=== PATIENT | female | born 1950 | race Caucasian/White ===

== ENCOUNTER 2017-01-28 06:25 | Outpatient (CLI) | payer MEDICARE ==
[~2017-01-28] VITALS: Ht 167.6 cm; Wt 52.6 kg
[~2017-01-28 06:25] MED LIST: ALBU8.5H4 IH; ALPR1TAB2 PO; HYDR-3583 PO; IPR14IN INH; MIRT30TA6 PO; MRTZ15T PO; OMEP-10 PO; ONDA4TAB8 PO; OXYC-12 PO; POTA20TA15 PO
[2017-01-28] MEDS ORDERED: DIVA-21 PO (15:17)
== END 2017-01-28 15:27 ==
LOC: PREOP 06:25
PROVIDERS: ATTEND Surgery
DX: Z01.818 Encounter for other preprocedural examination (principal); Z85.038 Personal history of other malignant neoplasm of large intestine

== ENCOUNTER 2017-02-01 09:07 | Day surgery (SDC) | payer MEDICAID, MEDICARE ==
[~2017-02-01] VITALS: Ht 167.6 cm; Wt 52.6 kg
[~2017-02-01 09:07] MED LIST changes: +DIVA-21 PO
--- NOTE | 2017-02-01 09:34 | Conscious Sedation/ASA ---
Conscious Sedation Pre-Proced ASA Class: 2 Airway Mallampati Classification: ([place] appropriate class) I. II. III, IV Lungs Heart ASA score ASA 1: a normal healthy patient ASA 2: a patient with a mild systemic disease (mid diabetes, controlled hypertension, obesity ASA 3: a patient with a severe systemic disease that limits activity (angina , COPD, prior Myocardial infarction) ASA 4: a patient with an incapacitating disease that is a constant threat to life (CHF, renal failure) ASA 5: a moribund patient not expected to survive 24 hrs. (ruptured aneurysm) ASA 6: a declared brain patient whose organs are being harvested. For emergent operations, add the letter E after the classification Grade 1 Sedation Plan: Plan communicated to team members, Discussed options with patient/fam Note The patient is an appropriate candidate to undergo the planned procedure, sedation, and anesthesia. The patient immediately re-assessed prior to indication. VERNON CARABALLO MD Feb 01, 2017 9:34 am
[2017-02-01] MEDS ORDERED: NS IV 500 ML 500 ML IV PRN (09:35)
[2017-02-01] MEDS ORDERED: NALOXONE 0.4 MG/ML 1 ML (NARCAN) VIAL IVP PRN (09:45)
[2017-02-01] MEDS ORDERED: FLUMAZENIL (ROMAZICON) 0.1 MG/ML 5 ML VIAL INJ PRN (09:45)
[2017-02-01] MEDS ORDERED: MIRT30TA6 PO (10:12)
[2017-02-01] MEDS ORDERED: BUDE10.2 IH (10:12)
[2017-02-01] MEDS ORDERED: METO-351 PO (10:12)
[2017-02-01] MEDS ORDERED: CYPR4TAB PO (10:12)
[2017-02-01] MEDS ORDERED: RT-ALBUINH IH (10:12)
[2017-02-01 10:30] VITALS: BP 123/99
[2017-02-01] MEDS ORDERED: MIDAZOLAM 2 MG/2 ML (VERSED) VIAL ONE ×5 (11:25→11:32)
[2017-02-01] MEDS ORDERED: fentaNYL INJECTION 100 MCG/2 ML AMP ONE ×3 (11:25→11:33)
[2017-02-01] MEDS: fentaNYL INJECTION 100 MCG/2 ML AMP IVP PRN ×5 (11:25→11:50)
[2017-02-01] MEDS: MIDAZOLAM 2 MG/2 ML (VERSED) VIAL IVP PRN ×5 (11:35→11:47)
--- NOTE | 2017-02-01 11:59 | Endoscopy Procedure Report ---
Endoscopy Report Date: Feb 01, 2017 Preoperative Diagnosis: personal history of colon cancer and polyps Study Performed: Colonoscopy Procedure Instrument: Colonoscope Procedure Procedure and Findings colonoscopy with hot biopsy polypectomy Findings Findings 1.: Polyp, Diverticulosis, Internal Hemorrhoids Copy Copies To 1: REBECCA HERNANDEZ XAVIER M MD Feb 01, 2017 11:59 am
--- NOTE | 2017-02-01 12:00 | Discharge Inst-Simple/Standard ---
Discharge Inst-Standard Discharge Medications New, Converted or Re-Newed RX: Other Patient Instructions/Follow Up Plan of Care/Instructions/FU: repeat colonoscopy in 2 years Activity as Tolerated: Yes Discharge Diet: No Restrictions VERNON CARABALLO MD Feb 01, 2017 12:00 pm
[2017-02-01 12:45] VITALS: BP 112/69
[2017-02-01 13:10] VITALS: BP 114/72
[2017-02-01 13:25] VITALS: BP 114/72
--- NOTE | 2017-02-02 08:49 | PROCEDURE REPORT ---
PROCEDURE PHYSICIAN: VERNON CARABALLO DATE OF PROCEDURE: 02/01/2017 PROCEDURE: 1. Colonoscopy. 2. Polypectomy (hot biopsy x2). SURGEON: Dr. Caraballo. INDICATION FOR THE PROCEDURE: This lady came in for colonoscopy for polyp surveillance. In addition, she had undergone sigmoid resection for carcinoma many years ago. Informed consent was obtained after reviewing the procedure in detail. DESCRIPTION OF PROCEDURE: She was placed in left lateral decubitus position and her vital signs were monitored. Conscious sedation was achieved using Versed and fentanyl. Digital rectal examination was unremarkable. The colonoscope was then introduced into the rectum and advanced to the cecum. It was then withdrawn slowly and the mucosa examined in a systematic fashion. FINDINGS: 1. Internal hemorrhoids. 2. Very few diverticula involving the descending colon. 3. A 2 mm polyp at the proximal descending colon that was excised with hot biopsy forceps. 4. 1 mm polyp at the proximal transverse colon that was managed in a similar fashion. She tolerated the procedure well and was taken back to the nursing area in a stable condition. IMPRESSION: 1. Previous sigmoid carcinoma. 2. Personal history of polyps. 3. Small polyps excised from the descending and the proximal transverse colon. 4. Recommend repeating in 2 years. Job ID: [id number] Dictated Date: 02/01/2017 11:58:11 Wig Comber Date: 02/02/2017 08:39:36 / soto ESTRADA
--- OUTSIDE RECORDS SUMMARY | 2017-03-07 05:50 | XMS REPORT ---
Author Author RUFINO MEEKS eClinicalWorks Address Unknown Phone Unavailable Care Team Providers Care Art Conservator Name Role Phone RUFINO MEEKS CP Unavailable Allergies, Adverse Reactions, Alerts Substance Reaction Event Type N.K.D.A. 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 Active Problem Unspecified osteoporosis 733.00 Active Problem PTSD (post-traumatic stress disorder) F43.10 Active Problem Loss of weight 783.21 Active Problem Vomiting alone 787.03 Active Problem Diarrhea 787.91 Active Problem Unspecified abnormal mammogram 793.80 Active Assessment PTSD (post-traumatic stress disorder) F43.10 Active Assessment Moderate mixed bipolar I disorder F31.62 Active Assessment 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 Active Problem Moderate mixed bipolar I disorder F31.62 Active Problem Nausea alone 787.02 Active Problem Panic disorder without agoraphobia F41.0 Active Problem Pain in joint, shoulder region 719.41 Active Problem Posttraumatic stress disorder F43.10 Active Problem Nondependent tobacco use disorder 305.1 Active Medications Medication Code System Code Instructions Start Date End Date Status Dosage Vitamin D3 [facility] 11574-84024 Oct 30, 2014 2000iu daily Mirtazapine [facility] [address]-50 30 MG Orally at bedtime 1 tablet Atorvastatin Calcium [facility] [address]-67 20 MG Orally Once a day 1 tablet Symbicort [facility] 10978288962 160-4.5 MCG/ACT INHALE TWO PUFFS BY MOUTH TWICE DAILY IN THE MORNING AND EVENING Omeprazole [facility] 40951110300 20 MG TAKE ONE CAPSULE BY MOUTH DAILY BEFORE A MEAL Ibuprofen [facility] [address]-53 200 MG Orally every 6 hrs 1 tablet as needed B-12 [facility] [address]20-[address]348 500 MCG Sublingual Once a day 1 tablet under the tongue and allow to dissolve Depakote ER [facility] [address]-97 500 MG Orally Once a day at HS 1 torres ProAir HFA [facility] 10695592148 108 (90 Base) MCG/ACT INHALE ONE TO TWO PUFFS BY MOUTH EVERY 4 HOURS NEEDED FOR SHORTNESS OF BREATH Xanax [facility] [address]-23 1 MG Orally 3 times a day for anxiety March 12, 2015 1 tablet Procedures Procedure Coding System Code Date [facility] VISIT ESTABLISHED PATIENT CPT-4 G0467 Oct 03, 2015 Office Visit, Est Pt., Level 3 CPT-4 08841 Oct 03, 2015 [facility] VISIT ESTABLISHED PATIENT CPT-4 G0467 Oct 03, 2015 Vital Signs Date/Time: Oct 03, 2015 Cardiac Monitoring Heart Rate 104 bpm Weight 118.7 lbs Height 66 in BMI 19.16 Index Blood Pressure Diastolic 66 mmHg Blood Pressure Systolic 104 mmHg Results No Known Results Summary Purpose eClinicalWorks Submission
--- OUTSIDE RECORDS SUMMARY | 2017-03-07 05:50 | XMS REPORT ---
Author MO Kirk eClinicalWorks Address Unknown Phone Unavailable Care Team Providers Care Rheumatology Specialist Name Role Phone MO MOMIN CP Unavailable Allergies, Adverse Reactions, Alerts Substance Reaction Event Type N.K.D.A. 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 Active Problem Hyperlipidemia, unspecified hyperlipidemia type E78.5 Active Problem PTSD (post-traumatic stress disorder) F43.10 Active Problem Unspecified abnormal mammogram 793.80 Active Problem Loss of weight 783.21 Active Problem Unspecified osteoporosis 733.00 Active Problem Diarrhea 787.91 Active Assessment Dental examination Z01.20 Active Problem Nausea alone 787.02 Active Problem Pain in joint, shoulder region 719.41 Active Problem Panic disorder without agoraphobia F41.0 Active Problem Nondependent tobacco use disorder 305.1 Active Problem Moderate mixed bipolar I disorder F31.62 Active Problem Esophageal reflux 530.81 Active Medications Medication Code System Code Instructions Start Date End Date Status Dosage Atorvastatin Calcium [facility] [address]-07 20 MG TAKE ONE TABLET BY MOUTH ONCE DAILY (MUST HAVE APPOINTMENT FOR REFILL) Omeprazole [facility] [address]-13 20 MG TAKE ONE CAPSULE BY MOUTH BY MOUTH ONCE DAILY BEFORE A MEAL Symbicort [facility] [address]-76 160-4.5 MCG/ACT INHALE TWO PUFFS BY MOUTH TWICE DAILY ProAir HFA [facility] [address]-80 108 (90 Base) MCG/ACT INHALE ONE TO TWO PUFFS BY MOUTH EVERY 4 HOURS NEEDED FOR SHORTNESS OF BREATH Mirtazapine [facility] [address]-44 15 MG Orally Once at bedtime for sleep 1 tablet Toprol XL [facility] [address]-57 25 MG Orally Once a day at bedtime April 23, 2016 1 tablet Depakote ER [facility] [address]-78 500 MG Orally Once a day at HS 1 tab Xanax [facility] [address]-24 1 MG Orally 3 times a day for anxiety March 12, 2015 1 tablet Procedures Procedure Coding System Code Date Dental no charge CPT-4 D0099 May 06, 2016 Vital Signs Date/Time: May 06, 2016 Blood Pressure Diastolic 78 mmHg Blood Pressure Systolic 121 mmHg Height 66 in Results No Known Results Summary Purpose eClinicalWorks Submission
--- OUTSIDE RECORDS SUMMARY | 2017-03-07 05:50 | XMS REPORT ---
Author Author MICAELA RODNEY eClinicalWorks Address Unknown Phone Unavailable Care Team Providers Care Machine Operator Picker Name Role Phone MICAELA RODNEY CP Unavailable Allergies No Known Allergies Problems Problem Type Condition Code Onset Dates [...] 733.00 Active Problem Diarrhea 787.91 Active Assessment Moderate mixed bipolar I disorder F31.62 Active Problem Panic disorder without agoraphobia F41.0 Active Assessment Panic disorder without agoraphobia F41.0 Active Assessment Posttraumatic stress disorder F43.10 Active Problem Nausea alone 787.02 Active Problem Pain in joint, shoulder region 719.41 Active Problem Posttraumatic stress disorder F43.10 Active Problem Nondependent tobacco use disorder 305.1 Active Problem Moderate mixed bipolar I disorder F31.62 Active Problem Esophageal reflux 530.81 Active Medications No Known Medications Procedures Procedure Coding System Code Date Psychotherapy, patient &/family, 45 minutes, established patient CPT-4 99969 Nov 25, 2015 [facility] VISIT MENTAL HEALTH ESTAB PT CPT-4 G0470 Nov 25, 2015 Results No Known Results Summary Purpose eClinicalWorks Submission
--- OUTSIDE RECORDS SUMMARY | 2017-03-07 05:51 | XMS REPORT ---
Author Author SHAHID CONTRERAS [facility] eClinicalWorks Address Unknown Phone Unavailable Care Team Providers Care Paraprofessional Education Assistant Name Role Phone SHAHID CONTRERAS CP Unavailable Allergies No Known Allergies Problems Problem Type Condition Code Onset Dates Condition Status Problem Pain in joint, shoulder region 719.41 Active Problem Esophageal reflux 530.81 Active Problem Nondependent tobacco use disorder 305.1 Active Problem Diarrhea 787.91 Active Problem Unspecified abnormal mammogram 793.80 Active Problem Unspecified osteoporosis 733.00 Active Problem Benign paroxysmal positional vertigo 386.11 Active Problem Chronic airway obstruction, not elsewhere classified 496 Active Problem Loss of weight 783.21 Active Problem Vomiting alone 787.03 Active Problem Panic disorder without agoraphobia F41.0 Active Problem Posttraumatic stress disorder F43.10 Active Problem Moderate mixed bipolar I disorder F31.62 Active Problem Nausea alone 787.02 Active Medications No Known Medications Results No Known Results Summary Purpose eClinicalWorks Submission
--- OUTSIDE RECORDS SUMMARY | 2017-03-07 05:51 | XMS REPORT ---
Author MO Kirk [facility] eClinicalWorks Address Unknown Phone Unavailable Care Team Providers Care Medical Authorization Specialist Name Role Phone MO MOMIN CP Unavailable Allergies No Known Allergies Problems [...] Instructions Start Date End Date Status Dosage Symbicort [facility] [address]-60 160-4.5 MCG/ACT INHALE TWO PUFFS BY MOUTH TWICE DAILY Xanax [facility] [address]-92 1 MG Orally 3 times a day for anxiety March 12, 2015 1 tablet Depakote ER [facility] [address]-79 500 MG Orally Once a day at HS 1 tab ProAir HFA [facility] [address]-97 108 (90 Base) MCG/ACT INHALE ONE TO TWO PUFFS BY MOUTH EVERY 4 HOURS NEEDED FOR SHORTNESS OF BREATH Mirtazapine [facility] [address]-39 15 MG Orally Once at bedtime for sleep 1 tablet Toprol XL [facility] [address]-05 25 MG Orally Once a day at bedtime April 23, 2016 1 tablet Atorvastatin Calcium [facility] [address]-53 20 MG TAKE ONE TABLET BY MOUTH ONCE DAILY (MUST HAVE APPOINTMENT FOR REFILL) Omeprazole [facility] [address]-70 20 MG TAKE ONE CAPSULE BY MOUTH BY MOUTH ONCE DAILY BEFORE A MEAL Procedures Procedure Coding System Code Date Dental no charge CPT-4 D0099 May 14, 2016 Results No Known Results Summary Purpose eClinicalWorks Submission
--- OUTSIDE RECORDS SUMMARY | 2017-03-07 05:51 | XMS REPORT ---
Author Author RUFINO MEEKS eClinicalWorks Address Unknown Phone Unavailable Care Team Providers Care Steep Tender Name Role Phone RUFINO MEEKS CP Unavailable Allergies No Known Allergies Problems [...] osteoporosis 733.00 Active Problem Diarrhea 787.91 Active Problem Panic disorder without agoraphobia F41.0 Active Problem Nausea alone 787.02 Active Problem Pain in joint, shoulder region 719.41 Active Problem Posttraumatic stress disorder F43.10 Active Problem Nondependent tobacco use disorder 305.1 Active Problem Moderate mixed bipolar I disorder F31.62 Active Problem Esophageal reflux 530.81 Active Medications Medication Code System Code Instructions Start Date End Date Status Dosage Xanax [facility] [address]-69 1 MG Orally 3 times a day for anxiety March 12, 2015 1 tablet Results No Known Results Summary Purpose eClinicalWorks Submission
--- OUTSIDE RECORDS SUMMARY | 2017-03-07 05:51 | XMS REPORT ---
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 Active Assessment PTSD (post-traumatic stress disorder) F43.10 Active Problem Nausea alone 787.02 Active Problem Pain in joint, shoulder region 719.41 Active Problem Posttraumatic stress disorder F43.10 Active Problem Nondependent tobacco use disorder 305.1 Active Problem Moderate mixed bipolar I disorder F31.62 Active Problem Esophageal reflux 530.81 Active Medications Medication Code System Code Instructions Start Date End Date Status Dosage ProAir HFA [facility] [id number] 108 (90 Base) MCG/ACT INHALE ONE TO TWO PUFFS BY MOUTH EVERY 4 HOURS NEEDED FOR SHORTNESS OF BREATH Xanax [facility] [address]-76 1 MG Orally 3 times a day for anxiety March 12, 2015 1 tablet B-12 [facility] [address]372 500 MCG Sublingual Once a day 1 tablet under the tongue and allow to dissolve Vitamin D3 [facility] [address] Oct 30, 2014 2000iu daily Depakote ER [facility] [address]-23 500 MG Orally Once a day at HS 1 torres Omeprazole [facility] 47631084361 20 MG TAKE ONE CAPSULE BY MOUTH DAILY BEFORE A MEAL Symbicort [facility] 82163982727 160-4.5 MCG/ACT INHALE TWO PUFFS BY MOUTH TWICE DAILY IN THE MORNING AND EVENING Ibuprofen [facility] [address]-92 200 MG Orally every 6 hrs 1 tablet as needed Mirtazapine [facility] [address]-66 15 MG Orally Once at bedtime for sleep 1 tablet Lipitor [facility] 98200762205 20 MG Orally Once a day 1 tablet Procedures Procedure Coding System Code Date Office Visit, Est Pt., Level 3 CPT-4 35004 Dec 05, 2015 [facility] EST[facility] PATIENT CPT-4 G0467 Dec 05, 2015 Vital Signs Date/Time: Dec 05, 2015 Cardiac Monitoring Heart Rate 98 bpm Weight 127.8 lbs Height 66 in BMI 20.63 Index Blood Pressure Diastolic 74 mmHg Blood Pressure Systolic 120 mmHg Results No Known Results Summary Purpose eClinicalWorks Submission
--- OUTSIDE RECORDS SUMMARY | 2017-03-07 05:51 | XMS REPORT ---
Author Author MICAELA RODNEY eClinicalWorks Address Unknown Phone Unavailable Care Team Providers Care Parachute Manufacturing Supervisor Name Role Phone MICAELA RODNEY CP Unavailable [...] 783.21 Active Problem Vomiting alone 787.03 Active Assessment Panic disorder without agoraphobia F41.0 Active Problem Panic disorder without agoraphobia F41.0 Active Problem Posttraumatic stress disorder F43.10 Active Assessment Posttraumatic stress disorder F43.10 Active Problem Moderate mixed bipolar I disorder F31.62 Active Assessment Moderate mixed bipolar I disorder F31.62 Active Problem Nausea alone 787.02 Active Medications No Known Medications Procedures Procedure Coding System Code Date Psychotherapy, patient &/family, 45 minutes, established patient CPT-4 52228 Sep 02, 2015 [facility] VISIT MENTAL HEALTH ESTAB PT CPT-4 G0470 Sep 02, 2015 Results No Known Results Summary Purpose eClinicalWorks Submission
--- OUTSIDE RECORDS SUMMARY | 2017-03-07 05:51 | XMS REPORT ---
Author Author SHAHID CONTRERAS Organization eClinicalWorks Address Unknown Phone Unavailable Care Team Providers Care Beamer Operator Name Role Phone SHAHID CONTRERAS CP Unavailable Allergies No Known Allergies Problems Problem Type Condition Code Onset Dates Condition Status Problem Vomiting alone 787.03 Active Problem Generalized anxiety disorder 300.02 Active Problem Loss of weight 783.21 Active Problem Posttraumatic stress disorder 309.81 Active Problem Panic disorder 300.01 Active Problem Bipolar I disorder, most recent episode (or current) mixed, moderate 296.62 Active Problem Unspecified abnormal mammogram 793.80 Active Problem Major depressive disorder, recurrent episode, moderate 296.32 Active Problem Unspecified osteoporosis 733.00 Active Problem Diarrhea 787.91 Active Assessment Inconclusive mammogram R92.2 Active Problem Nondependent tobacco use disorder 305.1 Active Problem Esophageal reflux 530.81 Active Problem Nausea alone 787.02 Active Problem Chronic airway obstruction, not elsewhere classified 496 Active Problem Pain in joint, shoulder region 719.41 Active Problem Benign paroxysmal positional vertigo 386.11 Active Medications No Known Medications Results No Known Results Summary Purpose eClinicalWorks Submission
--- OUTSIDE RECORDS SUMMARY | 2017-03-07 05:51 | XMS REPORT ---
Author Author RUFINO MEEKS eClinicalWorks Address Unknown Phone Unavailable Care Team Providers Care Ham Clerk Name Role Phone RUFINO MEEKS CP Unavailable [...] 733.00 Active Problem Diarrhea 787.91 Active Problem Nausea alone 787.02 Active Problem Pain in joint, shoulder region 719.41 Active Problem Panic disorder without agoraphobia F41.0 Active Problem Nondependent tobacco use disorder 305.1 Active Problem Moderate mixed bipolar I disorder F31.62 Active Problem Esophageal reflux 530.81 Active Medications Medication Code System Code Instructions Start Date End Date Status Dosage Xanax [facility] [address]-16 1 MG Orally 3 times a day for anxiety March 12, 2015 1 tablet Results No Known Results Summary Purpose eClinicalWorks Submission
--- OUTSIDE RECORDS SUMMARY | 2017-03-07 05:51 | XMS REPORT ---
Author Author MICAELA RODNEY eClinicalWorks Address Unknown Phone Unavailable Care Team Providers Care Hospital Medicine Director Name Role Phone MICAELA RODNEY CP Unavailable [...] Coding System Code Date Psychotherapy, patient &/family, 30 minutes, established patient CPT-4 69300 Oct 14, 2015 [facility] VISIT MENTAL HEALTH ESTAB PT CPT-4 G0470 Oct 14, 2015 Results No Known Results Summary Purpose eClinicalWorks Submission
--- OUTSIDE RECORDS SUMMARY | 2017-03-07 05:52 | XMS REPORT ---
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 Active Problem Nausea alone 787.02 Active Problem Pain in joint, shoulder region 719.41 Active Problem Panic disorder without agoraphobia F41.0 Active Problem Nondependent tobacco use disorder 305.1 Active Problem Moderate mixed bipolar I disorder F31.62 Active Problem Esophageal reflux 530.81 Active Medications Medication Code System Code Instructions Start Date End Date Status Dosage Omeprazole [facility] [address]-25 20 MG TAKE ONE CAPSULE BY MOUTH BY MOUTH ONCE DAILY BEFORE A MEAL Atorvastatin Calcium [facility] [address]-12 20 mg Orally Once a day May 14, 2016 1 tablet Depakote ER [facility] 56697558367 500 MG Orally Once a day at HS 1 tab Cyproheptadine HCl [facility] [address]-78 4 MG Orally Once a day to increase appetite Aug 13, 2016 1 tablet Toprol XL [facility] 47389917393 25 MG Orally Once a day at bedtime 1 tablet Symbicort [facility] [address]-11 160-4.5 MCG/ACT INHALE TWO PUFFS BY MOUTH TWICE DAILY ProAir HFA [facility] [address]-95 108 (90 Base) MCG/ACT INHALE ONE TO TWO PUFFS BY MOUTH EVERY 4 HOURS NEEDED FOR SHORTNESS OF BREATH Xanax [facility] [address]-88 1 MG Orally 3 times a day for anxiety March 12, 2015 1 tablet Mirtazapine [facility] [address]-76 30 MG Orally Once at bedtime for depression and sleep 1 tablet Procedures Procedure Coding System Code Date Office Visit, Est Pt., Level 4 CPT-4 61505 Aug 13, 2016 [facility] VISIT ESTABLISHED PATIENT CPT-4 G0467 Aug 13, 2016 Vital Signs Date/Time: Aug 13, 2016 Cardiac Monitoring Heart Rate 120 bpm Weight 126.8 lbs Height 66 in BMI 20.46 Index Blood Pressure Diastolic 70 mmHg Blood Pressure Systolic 120 mmHg Results No Known Results Summary Purpose eClinicalWorks Submission
--- OUTSIDE RECORDS SUMMARY | 2017-03-07 05:53 | XMS REPORT ---
Author Author RUFINO MEEKS e[employer] Address Unknown Phone Unavailable Care Team Providers Care Infection Prevention Practitioner Name Role Phone RUFINO MEEKS CP Unavailable Allergies, Adverse Reactions, Alerts Substance Reaction Event Type N.K.D.A. Info Not Available Non Drug Allergy Problems Problem Type Condition ICD-9 Code Onset Dates Condition Status Problem Vomiting [...] 733.00 Active Problem Diarrhea 787.91 Active Assessment Posttraumatic stress disorder 309.81 Active Assessment Bipolar I disorder, most recent episode (or current) mixed, moderate 296.62 Active Assessment Panic disorder with agoraphobia 300.21 Active Problem Nondependent tobacco use disorder 305.1 Active Problem Esophageal reflux 530.81 Active Problem Nausea alone 787.02 Active Problem Chronic airway obstruction, not elsewhere classified 496 Active Problem Pain in joint, shoulder region 719.41 Active Problem Benign paroxysmal positional vertigo 386.11 Active Medications Medication Code System Code Instructions Start Date End Date Status Dosage Xanax [facility] [address]-36 1 MG Orally 3 times a day for anxiety March 12, 2015 1 tablet Atorvastatin Calcium [facility] [address]-14 20 MG Orally Once a day 1 tablet Depakote ER [facility] [address]-99 250 MG Orally at bedtime with Depakote ER 500gm (750mg total) Jul 23, 2015 1 tablet B-12 [facility] [address] 500 MCG Sublingual Once a day 1 tablet under the tongue and allow to dissolve Omeprazole [facility] [id number] 20 MG TAKE ONE CAPSULE BY MOUTH DAILY BEFORE A MEAL Mirtazapine [facility] [address]-59 30 MG Orally at bedtime 1 tablet Ibuprofen [facility] [address]-14 200 MG Orally every 6 hrs 1 tablet as needed Depakote ER [facility] [address]-47 500 MG Orally Once a day at HS May 28, 2015 1 torres ProAir HFA [facility] [id number] 108 (90 Base) MCG/ACT INHALE ONE TO TWO PUFFS BY MOUTH EVERY 4 HOURS NEEDED FOR SHORTNESS OF BREATH Symbicort [facility] 54497280353 160-4.5 MCG/ACT INHALE TWO PUFFS BY MOUTH TWICE DAILY IN THE MORNING AND EVENING Vitamin D3 [facility] [address] Oct 30, 2014 2000iu daily Procedures Procedure Coding System Code Date Office Visit, Est Pt., Level 4 CPT-4 82726 Jul 23, 2015 [facility] VISIT ESTABLISHED PATIENT CPT-4 G0467 Jul 23, 2015 Vital Signs Date/Time: Jul 23, 2015 Temperature 98.6 F Weight 111.7 lbs Height 66 in BMI 18.03 Index Blood Pressure Diastolic 65 mmHg Blood Pressure Systolic 100 mmHg Cardiac Monitoring Heart Rate 88 bpm Results No Known Results Summary Purpose eClinicalWorks Submission
--- OUTSIDE RECORDS SUMMARY | 2017-03-07 05:53 | XMS REPORT ---
Author Author MICAELA RODNEY e[employer] Address Unknown Phone Unavailable Care Team Providers Care Psych Assistant Name Role Phone MICAELA RODNEY CP Unavailable Allergies No Known Allergies Problems Problem Type Condition ICD-9 Code Onset [...] mixed, moderate 296.62 Active Assessment Panic disorder 300.01 Active Problem Nondependent tobacco use disorder 305.1 Active Problem Esophageal reflux 530.81 Active Problem Nausea alone 787.02 Active Problem Chronic airway obstruction, not elsewhere classified 496 Active Problem Pain in joint, shoulder region 719.41 Active Problem Benign paroxysmal positional vertigo 386.11 Active Medications No Known Medications Procedures Procedure Coding System Code Date Psychotherapy, patient &/family, 45 minutes, established patient CPT-4 12508 Jul 17, 2015 [facility] VISIT MENTAL HEALTH ESTAB PT CPT-4 G0470 Jul 17, 2015 Results No Known Results Summary Purpose eClinicalWorks Submission
--- OUTSIDE RECORDS SUMMARY | 2017-03-07 05:53 | XMS REPORT ---
Author Author RUFINO MEEKS e[employer] Address Unknown Phone Unavailable Care Team Providers Care Vulcanizer Operator Name Role Phone RUFINO MEEKS CP Unavailable [...] Start Date End Date Status Dosage Xanax [facility] [address]-76 1 MG Orally 3 times a day for anxiety March 12, 2015 1 tablet Results No Known Results Summary Purpose eClinicalWorks Submission
--- OUTSIDE RECORDS SUMMARY | 2017-03-07 05:53 | XMS REPORT ---
Author Author RUFINO MEEKS [employer] Address Unknown Phone Unavailable Care Team Providers Care Vp Cardiovascular Name Role Phone RUFINO MEEKS CP Unavailable [...] Instructions Start Date End Date Status Dosage Depakote ER [facility] [address]-00 500 MG Orally Once a day at HS 1 tab Results No Known Results Summary Purpose eClinicalWorks Submission
--- OUTSIDE RECORDS SUMMARY | 2017-03-07 05:53 | XMS REPORT ---
Author Author SHAHID CONTRERAS Organization e[employer] Address Unknown Phone Unavailable Care Team Providers Care Drift Miner Name Role Phone SHAHID CONTRERAS CP Unavailable [...] reflux 530.81 Active Medications No Known Medications Results No Known Results Summary Purpose eClinicalWorks Submission
--- OUTSIDE RECORDS SUMMARY | 2017-03-07 05:53 | XMS REPORT ---
Author Author RUFINO MEEKS [facility] Address [address] [place] [address] Care Team Providers Care Delivery Person Name Role Phone RUFINO MEEKS Unavailable PROBLEMS Type Condition ICD9-CM Code [id number] Code Onset Dates Condition Status SNOMED Code Problem Vomiting alone 787.03 Active 549690886 Problem Unspecified abnormal mammogram 793.80 Active 858135958 Problem Loss of weight 783.21 Active 731326351 Problem Chronic post-traumatic stress disorder (PTSD) F43.12 Active 785195492 Problem PTSD (post-traumatic stress disorder) F43.10 Active 86022486 Problem Unspecified osteoporosis 733.00 Active 35284413 Problem Diarrhea 787.91 Active 79480121 Problem 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 Active 13683246 Problem Hyperlipidemia, unspecified hyperlipidemia type E78.5 Active 71276007 Problem Panic disorder without agoraphobia F41.0 Active 39967839 Problem Moderate mixed bipolar I disorder F31.62 Active 01394924 Assessment Moderate mixed bipolar I disorder F31.62 Oct, Active 24411909 Problem Nondependent tobacco use disorder 305.1 Active 504624319 Problem Esophageal reflux 530.81 Active 290238270 Problem Nausea alone 787.02 Active 224128070 Problem Chronic airway obstruction, not elsewhere classified 496 Active 76437047 Problem Pain in joint, shoulder region 719.41 Active 360325935 Problem Benign paroxysmal positional vertigo 386.11 Active 594454407 ALLERGIES Substance Reaction Event Type Date Status N.K.D.A. Unknown Non Drug Allergy Oct, Unknown SOCIAL HISTORY No smoking Hx information available PLAN OF CARE VITAL SIGNS Height 66 in 2016-10-06 Heart Rate 92 bpm 2016-10-06 Respiratory Rate 22 2016-10-06 Blood pressure systolic 126 mmHg 2016-10-06 Blood pressure diastolic 82 mmHg 2016-10-06 MEDICATIONS Medication Instructions Dosage Frequency Start Date End Date Duration Status Depakote ER 500 MG Orally Once a day at HS 1 tab Active Cyproheptadine HCl 4 MG Orally Once a day to increase appetite 1 tablet Aug, Active Symbicort 160-4.5 MCG/ACT INHALE TWO PUFFS BY MOUTH TWICE DAILY 90 Active Xanax 1 MG Orally 3 times a day for anxiety 1 tablet March, Active Mirtazapine 30 MG Orally Once at bedtime for depression and sleep 1 tablet Active Omeprazole 20 MG TAKE ONE CAPSULE BY MOUTH BY MOUTH ONCE DAILY BEFORE A MEAL 90 Active Toprol XL 25 MG Orally Once a day at bedtime 1 tablet Active ProAir HFA 108 (90 Base) MCG/ACT INHALE ONE TO TWO PUFFS BY MOUTH EVERY 4 HOURS NEEDED FOR SHORTNESS OF BREATH 90 Active Atorvastatin Calcium 20 mg Orally Once a day 1 tablet 24h May, 90 days Active RESULTS No Results PROCEDURES Procedure Date Ordered Related Diagnosis Body Site [facility] VISIT ESTABLISHED PATIENT Oct 06, 2016 Office Visit, Est Pt., Level 4 Oct 06, 2016 IMMUNIZATIONS No Known Immunizations
--- OUTSIDE RECORDS SUMMARY | 2017-03-07 05:53 | XMS REPORT ---
Author Author RUFINO MEEKS e[employer] Address Unknown Phone Unavailable Care Team Providers Care Menswear Salesperson Name Role Phone RUFINO MEEKS CP Unavailable [...] Problem Unspecified abnormal mammogram 793.80 Active Problem Moderate mixed bipolar I disorder F31.62 Active Problem Nausea alone 787.02 Active Problem Panic disorder without agoraphobia F41.0 Active Problem Pain in joint, shoulder region 719.41 Active Problem Posttraumatic stress disorder F43.10 Active Problem Nondependent tobacco use disorder 305.1 Active Medications Medication Code System Code Instructions Start Date End Date Status Dosage Xanax [facility] [address]-73 1 MG Orally 3 times a day for anxiety March 12, 2015 1 tablet Results No Known Results Summary Purpose eClinicalWorks Submission
--- OUTSIDE RECORDS SUMMARY | 2017-03-07 05:53 | XMS REPORT | Continuity of Care Document ---
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 10/01/2010 780.79 FATIGUE 10/01/2010 780.8 sweating heavily at night 10/01/2010 783.21 recent weight loss involuntary over several months 10/01/2010 789.00 abdominal pain 10/01/2010 SHAHID CONTRERAS APRN 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 10/01/2010 SHAHID CONTRERAS APRN 311 DEPRESSION SEASONAL PATTERN 10/01/2010 SHAHID CONTRERAS APRN 780.79 FATIGUE 10/01/2010 SHAHID CONTRERAS APRN 780.8 sweating heavily at night 10/01/2010 SHAHID CONTRERAS APRN 783.21 recent weight loss involuntary over several months 10/01/2010 SHAHID CONTRERAS APRN 789.00 abdominal pain 10/01/2010 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 10/01/2010 311 DEPRESSION SEASONAL PATTERN 10/01/2010 780.79 FATIGUE 10/01/2010 780.8 sweating heavily at night 10/01/2010 783.21 recent weight loss involuntary over several months 10/01/2010 789.00 abdominal pain 10/01/2010 BEHZAD ABARCA PHD 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 10/01/2010 BEHZAD ABARCA PHD 311 DEPRESSION SEASONAL PATTERN 10/01/2010 BEHZAD ABARCA PHD 780.79 FATIGUE 10/01/2010 BOEKHOUT PHD, BEHZAD A 780.8 sweating heavily at night 10/01/2010 TEVIN PETERSON, BEHZAD Edgar 783.21 recent weight loss involuntary over several months 10/01/2010 BEHZAD ABARCA PHD 789.00 abdominal pain 10/01/2010 HERNANDEZ DO, REBECCA K 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 10/01/2010 HERNANDEZ DO, REBECCA K 311 DEPRESSION SEASONAL PATTERN 10/01/2010 HERNANDEZ DO, REBECCA K 780.79 FATIGUE 10/01/2010 HERNANDEZ DO, REBECCA K 780.8 sweating heavily at night 10/01/2010 HERNANDEZ DO, REBECCA K 783.21 recent weight loss involuntary over several months 10/01/2010 HERNANDEZ DO, REBECCA K 789.00 abdominal pain 10/01/2010 BEN TERRYN SHAHID S 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 10/01/2010 BEN LEVIN SHAHID S 311 DEPRESSION SEASONAL PATTERN 10/01/2010 BEN LEVIN SHAHID S 780.79 FATIGUE 10/01/2010 BEN TERRYN SHAHID S 780.8 sweating heavily at night 10/01/2010 BEN LEVIN SHAHID S 783.21 recent weight loss involuntary over several months 10/01/2010 BEN LEVIN SHAHID S 789.00 abdominal pain 10/01/2010 BEHZAD ABARCA PHD 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 10/01/2010 BEHZAD ABARCA PHD 311 DEPRESSION SEASONAL PATTERN 10/01/2010 BEHZAD ABARCA PHD 780.79 FATIGUE 10/01/2010 BEHZAD ABARCA PHD 780.8 sweating heavily at night 10/01/2010 BEHZAD ABARCA PHD 783.21 recent weight loss involuntary over several months 10/01/2010 BEHZAD ABARCA PHD 789.00 abdominal pain 10/01/2010 BEN LEVIN SHAHID S 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 10/01/2010 BEN POWER SYSTEMS ENGINEER, SHAHID S 311 DEPRESSION SEASONAL PATTERN 10/01/2010 BEN POWER SYSTEMS ENGINEER SHAHID S 780.79 FATIGUE 10/01/2010 BEN LEVIN SHAHID S 780.8 sweating heavily at night 10/01/2010 BEN LEVIN SHAHID S 783.21 recent weight loss involuntary over several months 10/01/2010 YASHIRA CONTRERAS APRNA S 789.00 abdominal pain 10/01/2010 JESSIE PAPPAS MD 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21 recent weight loss involuntary over several months 10/01/2010 SHAHID CONTRERAS APRN S 789.00 abdominal pain 10/01/2010 BEHZAD ABARCA PHD A 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 10/01/2010 BEHZAD ABARCA PHD 311 DEPRESSION SEASONAL PATTERN 10/01/2010 BEHZAD ABARCA PHD A 780.79 FATIGUE 10/01/2010 BEHZAD ABARCA PHD 780.8 sweating heavily at night 10/01/2010 BEHZAD ABARCA PHD 783.21 recent weight loss involuntary over several months 10/01/2010 BEHZAD ABARCA PHD A 789.00 abdominal pain 10/01/2010 BEHZAD ABARCA PHD A 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 10/01/2010 BEHZAD ABARCA PHD 311 DEPRESSION SEASONAL PATTERN 10/01/2010 BEHZAD ABARCA PHD A 780.79 FATIGUE 10/01/2010 BEHZAD ABARCA PHD A 780.8 sweating heavily at night 10/01/2010 BEHZAD ABARCA PHD 783.21 recent weight loss involuntary over several months 10/01/2010 TEVIN PETERSON, BEHZAD A 789.00 abdominal pain 10/01/2010 BEN POWER SYSTEMS ENGINEER, SHAHID S 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 10/01/2010 BEN POWER SYSTEMS ENGINEER, SHAHID S 311 DEPRESSION SEASONAL PATTERN 10/01/2010 BEN POWER SYSTEMS ENGINEER, SHAHID S 780.79 FATIGUE 10/01/2010 BEN POWER SYSTEMS ENGINEER, SHAHID S 780.8 sweating heavily at night 10/01/2010 BEN POWER SYSTEMS ENGINEER, SHAHID S 783.21 recent weight loss involuntary over several months 10/01/2010 BEN POWER SYSTEMS ENGINEER, SHAHID S 789.00 abdominal pain 10/01/2010 BEN TERRYN, SHAHID S 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 10/01/2010 BEN POWER SYSTEMS ENGINEER, SHAHID S 311 DEPRESSION SEASONAL PATTERN 10/01/2010 BEN POWER SYSTEMS ENGINEER, SHAHID S 780.79 FATIGUE 10/01/2010 BEN POWER SYSTEMS ENGINEER, SHAHID S 780.8 sweating heavily at night 10/01/2010 BEN POWER SYSTEMS ENGINEER, SHAHID S 783.21 recent weight loss involuntary over several months 10/01/2010 BEN POWER SYSTEMS ENGINEER, SHAHID S 789.00 abdominal pain 10/01/2010 BEN LEVIN, SHAHID S 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 10/01/2010 BEN POWER SYSTEMS ENGINEER, SHAHID S 311 DEPRESSION SEASONAL PATTERN 10/01/2010 BEN POWER SYSTEMS ENGINEER, SHAHID S 780.79 FATIGUE 10/01/2010 BEN TERRYN, SHAHID S 780.8 sweating heavily at night 10/01/2010 BNE POWER SYSTEMS ENGINEER, SHAHID S 783.21 recent weight loss involuntary over several months 10/01/2010 BEN POWER SYSTEMS ENGINEER, SHAHID S 789.00 abdominal pain 10/01/2010 BEN TERRYN, SHAHID S 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 10/01/2010 BEN POWER SYSTEMS ENGINEER, SHAHID S 311 DEPRESSION SEASONAL PATTERN 10/01/2010 BEN POWER SYSTEMS ENGINEER, SHAHID S 780.79 FATIGUE 10/01/2010 BEN POWER SYSTEMS ENGINEER, SHAHID S 780.8 sweating heavily at night 10/01/2010 MYRA CONTRERAS APRNNDA S 783.21 recent weight loss involuntary over several months 10/01/2010 YASHIRA CONTRERAS APRNA S 789.00 abdominal pain 10/01/2010 JD BURGESS MD 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 10/01/2010 JD BURGESS MD 311 DEPRESSION SEASONAL PATTERN 10/01/2010 JD BURGESS MD 780.79 FATIGUE 10/01/2010 JD BURGESS MD 780.8 sweating heavily at night 10/01/2010 JD BURGESS MD 783.21 recent weight loss involuntary over several months 10/01/2010 JD BURGESS MD 789.00 abdominal pain 10/01/2010 BEN LEVIN SHAHID S 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 10/01/2010 MYRA CONTRERAS APRNNDA S 311 DEPRESSION SEASONAL PATTERN 10/01/2010 MYRA CONTRERAS APRNNDA S 780.79 FATIGUE 10/01/2010 MYRA CONTRERAS APRNNDA S 780.8 sweating heavily at night 10/01/2010 BEN LEVIN SHAHID S 783.21 recent weight loss involuntary over several months 10/01/2010 BEN LEVIN SHAHID S 789.00 abdominal pain 10/01/2010 HERNANDEZ DO REBECCA K 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 10/01/2010 HERNANDEZ DO, REBECCA K 311 DEPRESSION SEASONAL PATTERN 10/01/2010 HERNANDEZ DO, REBECCA K 780.79 FATIGUE 10/01/2010 HERNANDEZ DO, REBECCA K 780.8 sweating heavily at night 10/01/2010 MARY PHILLIPS REBECCA K 783.21 recent weight loss involuntary over several months 10/01/2010 HERNANDEZ DO REBECCA K 789.00 abdominal pain 10/01/2010 BEN LEVIN SHAHID S 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 10/01/2010 BEN LEVIN SHAHID S 311 DEPRESSION SEASONAL PATTERN 10/01/2010 BEN LEVIN SHAHID S 780.79 FATIGUE 10/01/2010 BEN LEVIN SHAHID S 780.8 sweating heavily at night 10/01/2010 MYRA CONTRERAS APRNNDA S 783.21 recent weight loss involuntary over several months 10/01/2010 MYRA CONTRERAS APRNNDA S 789.00 abdominal pain 10/01/2010 YASHIRA CONTRERAS APRNA S 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 10/01/2010 SHAHID CONTRERAS APRN S 311 DEPRESSION SEASONAL PATTERN 10/01/2010 MYRA CONTRERAS APRNNDA S 780.79 FATIGUE 10/01/2010 YASHIRA CONTRERAS APRNA S 780.8 sweating heavily at night 10/01/2010 YASHIRA CONTRERAS APRNA S 783.21 recent weight loss involuntary over several months 10/01/2010 YASHIRA CONTRERAS APRNA S 789.00 abdominal pain 10/13/2010 724.5 BACKACHE 10/13/2010 786.52 chest pain made worse by breathing 10/13/2010 YASHIRA CONTRERAS APRNA S 724.5 BACKACHE 10/13/2010 YASHIRA CONTRERAS APRNA S 786.52 chest pain made worse by breathing 10/13/2010 724.5 BACKACHE 10/13/2010 786.52 chest pain made worse by breathing 10/13/2010 TEVIN PETERSON, BEHZAD A 724.5 BACKACHE 10/13/2010 TEVIN PETERSON, BEHZAD A 786.52 chest pain made worse by breathing 10/13/2010 HERNANDEZ DOTIAA K 724.5 BACKACHE 10/13/2010 HERNANDEZ DO, REBECCA K 786.52 chest pain made worse by breathing 10/13/2010 YASHIRA CONTRERAS APRNA S 724.5 BACKACHE 10/13/2010 YASHIRA CONTRERAS APRNA S 786.52 chest pain made worse by breathing 10/13/2010 TEVIN PETERSON, BEHZAD A 724.5 BACKACHE 10/13/2010 TEVIN PETERSON, BEHZAD A 786.52 chest pain made worse by breathing 10/13/2010 YASHIRA CONTRERAS APRNA S 724.5 BACKACHE 10/13/2010 MYRA CONTRERAS APRNNDA S 786.52 chest pain made worse by breathing 10/13/2010 JESSIE PAPPAS MD 724.5 BACKACHE 10/13/2010 JESSIE PAPPAS MD 786.52 chest pain made worse by breathing 10/13/2010 BEN POWER SYSTEMS ENGINEER, SHAHID S 724.5 BACKACHE 10/13/2010 BEN POWER SYSTEMS ENGINEER, SHAHID S 786.52 chest pain made worse by breathing 10/13/2010 TEVIN PHD, BEHZAD A 724.5 BACKACHE 10/13/2010 [facility] PHD, BEHZAD A 786.52 chest pain made worse by breathing 10/13/2010 [facility] PHD, BEHZAD A 724.5 BACKACHE 10/13/2010 [facility] PHD, BEHZAD A 786.52 chest pain made worse by breathing 10/13/2010 BEN POWER SYSTEMS ENGINEER, SHAHID S 724.5 BACKACHE 10/13/2010 BEN POWER SYSTEMS ENGINEER, SHAHID S 786.52 chest pain made worse by breathing 10/13/2010 BEN POWER SYSTEMS ENGINEER, SHAHID S 724.5 BACKACHE 10/13/2010 BEN POWER SYSTEMS ENGINEER, SHAHID S 786.52 chest pain made worse by breathing 10/13/2010 BEN POWER SYSTEMS ENGINEER, SHAHID S 724.5 BACKACHE 10/13/2010 BEN TERRYN, SHAHID S 786.52 chest pain made worse by breathing 10/13/2010 BEN POWER SYSTEMS ENGINEER, SHAHID S 724.5 BACKACHE 10/13/2010 BEN POWER SYSTEMS ENGINEER, SHAHID S 786.52 chest pain made worse by breathing 10/13/2010 JD BURGESS MD 724.5 BACKACHE 10/13/2010 JD BURGESS MD 786.52 chest pain made worse by breathing 10/13/2010 BEN POWER SYSTEMS ENGINEER, SHAHID S 724.5 BACKACHE 10/13/2010 BEN TERRYN, SHAHID S 786.52 chest pain made worse by breathing 10/13/2010 HERNANDEZ DO, REBECCA K 724.5 BACKACHE 10/13/2010 HERNANDEZ DO, REBECCA K 786.52 chest pain made worse by breathing 10/13/2010 BEN POWER SYSTEMS ENGINEER, SHAHID S 724.5 BACKACHE 10/13/2010 BEN POWER SYSTEMS ENGINEER, SHAHID S 786.52 chest pain made worse by breathing 10/13/2010 BEN POWER SYSTEMS ENGINEER, SHAHID S 724.5 BACKACHE 10/13/2010 BEN TERRYN, SHAHID S 786.52 chest pain made worse by breathing 10/29/2010 V72.31 ROUTINE PELVIC EXAM 10/29/2010 BEN POWER SYSTEMS ENGINEER, SHAHID S V72.31 ROUTINE PELVIC EXAM 10/29/2010 V72.31 ROUTINE PELVIC EXAM 10/29/2010 TEVIN PHD, BEHZAD A V72.31 ROUTINE PELVIC EXAM 10/29/2010 REBECCA HERNANDEZ DO V72.31 ROUTINE PELVIC EXAM 10/29/2010 BEN POWER SYSTEMS ENGINEER, SHAHID S V72.31 ROUTINE PELVIC EXAM 10/29/2010 TEVIN PHD, BEHZAD A V72.31 ROUTINE PELVIC EXAM 10/29/2010 BEN POWER SYSTEMS ENGINEER, SHAHID S V72.31 ROUTINE PELVIC EXAM 10/29/2010 MIAN BACH, JESSIE Haynes V72.31 ROUTINE PELVIC EXAM 10/29/2010 BEN POWER SYSTEMS ENGINEER, SHAHID S V72.31 ROUTINE PELVIC EXAM 10/29/2010 TEVIN PHD, BEHZAD A V72.31 ROUTINE PELVIC EXAM 10/29/2010 TEVIN PHD, BEHZAD A V72.31 ROUTINE PELVIC EXAM 10/29/2010 BEN POWER SYSTEMS ENGINEER, SHAHID S V72.31 ROUTINE PELVIC EXAM 10/29/2010 BEN POWER SYSTEMS ENGINEER, SHAHID S V72.31 ROUTINE PELVIC EXAM 10/29/2010 BEN POWER SYSTEMS ENGINEER, SHAHID S V72.31 ROUTINE PELVIC EXAM 10/29/2010 BEN POWER SYSTEMS ENGINEER, SHAHID S V72.31 ROUTINE PELVIC EXAM 10/29/2010 JENIFER BACH, JD V72.31 ROUTINE PELVIC EXAM 10/29/2010 BEN POWER SYSTEMS ENGINEER, SHAHID S V72.31 ROUTINE PELVIC EXAM 10/29/2010 REBECCA HERNANDEZ DO K V72.31 ROUTINE PELVIC EXAM 10/29/2010 BEN POWER SYSTEMS ENGINEER, SHAHID S V72.31 ROUTINE PELVIC EXAM 10/29/2010 BEN POWER SYSTEMS ENGINEER, SHAHID S V72.31 ROUTINE PELVIC EXAM 12/01/2010 Ot 552.00 04/23/2011 Ot 883.0 04/23/2011 Ot E000.8 04/23/2011 Ot E849.0 04/23/2011 Ot E920.8 04/23/2011 Ot V06.1 01/25/2012 305.1 NICOTINE DEPENDENCE 01/25/2012 BEN POWER SYSTEMS ENGINEER, SHAHID S 305.1 NICOTINE DEPENDENCE 01/25/2012 305.1 NICOTINE DEPENDENCE 01/25/2012 TEVIN PETERSON, BEHZAD A 305.1 NICOTINE DEPENDENCE 01/25/2012 REBECCA HERNANDEZ DO 305.1 NICOTINE DEPENDENCE 01/25/2012 BEN LEVIN, SHAHID S 305.1 NICOTINE DEPENDENCE 01/25/2012 TEVIN PETERSON, BEHZAD A 305.1 NICOTINE DEPENDENCE 01/25/2012 BEN LEVIN, SHAHID S 305.1 NICOTINE DEPENDENCE 01/25/2012 MIAN BACH, JESSIE Haynes 305.1 NICOTINE DEPENDENCE 01/25/2012 BENCHAN LEVIN, SHAHID S 305.1 NICOTINE DEPENDENCE 01/25/2012 TEVIN PETERSON, BEHZAD A 305.1 NICOTINE DEPENDENCE 01/25/2012 TEVIN PETERSON, BEHZAD A 305.1 NICOTINE DEPENDENCE 01/25/2012 BEN LEVIN, SHAHID S 305.1 NICOTINE DEPENDENCE 01/25/2012 BEN LEVIN, SHAHID S 305.1 NICOTINE DEPENDENCE 01/25/2012 BEN LEVIN, SHAHID S 305.1 NICOTINE DEPENDENCE 01/25/2012 BENCHAN LEVIN, SHAHID S 305.1 NICOTINE DEPENDENCE 01/25/2012 JENIFER BACH, JD 305.1 NICOTINE DEPENDENCE 01/25/2012 BEN LEVIN, SHAHID S 305.1 NICOTINE DEPENDENCE 01/25/2012 REBECCA HERNANDEZ DO K 305.1 NICOTINE DEPENDENCE 01/25/2012 BEN LEVIN, SHAHID S 305.1 NICOTINE DEPENDENCE 01/25/2012 BEN LEVIN, SHAHID S 305.1 NICOTINE DEPENDENCE 02/17/2012 296.32 MO DEPRESSIVE RECURRENT MODERATE 02/17/2012 300.02 AN GEN ANXIETY 02/17/2012 BEN LEVIN, SHAHID S 296.32 MO DEPRESSIVE RECURRENT MODERATE 02/17/2012 BEN LEVIN, SHAHID S 300.02 AN GEN ANXIETY 02/17/2012 296.32 MO DEPRESSIVE RECURRENT MODERATE 02/17/2012 300.02 AN GEN ANXIETY 02/17/2012 TEVIN PETERSON, BEHZAD A 296.32 MO DEPRESSIVE RECURRENT MODERATE 02/17/2012 TEVIN PETERSON, BEHZAD A 300.02 AN GEN ANXIETY 02/17/2012 HERNANDEZ DO, REBECCA K 296.32 MO DEPRESSIVE RECURRENT MODERATE 02/17/2012 HERNANDEZ DO, REBECCA K 300.02 AN GEN ANXIETY 02/17/2012 BEN LEVIN SHAHID S 296.32 MO DEPRESSIVE RECURRENT MODERATE 02/17/2012 BEN LEVIN SHAHID S 300.02 AN GEN ANXIETY 02/17/2012 TEVIN PETERSON, BEHZAD A 296.32 MO DEPRESSIVE RECURRENT MODERATE 02/17/2012 TEVIN PETERSON, BEHZAD A 300.02 AN GEN ANXIETY 02/17/2012 BEN LEVIN SHAHID S 296.32 MO DEPRESSIVE RECURRENT MODERATE 02/17/2012 BEN LEVIN SHAHID S 300.02 AN GEN ANXIETY 02/17/2012 JESSIE PAPPAS MD 296.32 MO DEPRESSIVE RECURRENT MODERATE 02/17/2012 JESSIE PAPPAS MD 300.02 AN GEN ANXIETY 02/17/2012 MYRA CONTRERAS APRNNDA S 296.32 MO DEPRESSIVE RECURRENT MODERATE 02/17/2012 MYRA CONTRERAS APRNNDA S 300.02 AN GEN ANXIETY 02/17/2012 TEVIN PETERSON, BEHZAD A 296.32 MO DEPRESSIVE RECURRENT MODERATE 02/17/2012 TEVIN PHD, BEHZAD A 300.02 AN GEN ANXIETY 02/17/2012 TEVIN PETERSON, BEHZAD A 296.32 MO DEPRESSIVE RECURRENT MODERATE 02/17/2012 TEVIN PETERSON, BEHZAD A 300.02 AN GEN ANXIETY 02/17/2012 MYRA CONTRERAS APRNNDA S 296.32 MO DEPRESSIVE RECURRENT MODERATE 02/17/2012 MYRA CONTRERAS APRNNDA S 300.02 AN GEN ANXIETY 02/17/2012 MYRA CONTRERAS APRNNDA S 296.32 MO DEPRESSIVE RECURRENT MODERATE 02/17/2012 MYRA CONTRERAS APRNNDA S 300.02 AN GEN ANXIETY 02/17/2012 BEN LEVIN SHAHID S 296.32 MO DEPRESSIVE RECURRENT MODERATE 02/17/2012 MYRA CONTRERAS APRNNDA S 300.02 AN GEN ANXIETY 02/17/2012 BEN LEVIN SHAHID S 296.32 MO DEPRESSIVE RECURRENT MODERATE 02/17/2012 BEN LEVIN SHAHID S 300.02 AN GEN ANXIETY 02/17/2012 JD BURGESS MD 296.32 MO DEPRESSIVE RECURRENT MODERATE 02/17/2012 JENIFER BACH, JD 300.02 AN GEN ANXIETY 02/17/2012 BEN POWER SYSTEMS ENGINEER, SHAHID S 296.32 MO DEPRESSIVE RECURRENT MODERATE 02/17/2012 BEN POWER SYSTEMS ENGINEER, SHAHID S 300.02 AN GEN ANXIETY 02/17/2012 HERNANDEZ DO REBECCA K 296.32 MO DEPRESSIVE RECURRENT MODERATE 02/17/2012 HERNANDEZ DO, REBECCA K 300.02 AN GEN ANXIETY 02/17/2012 BEN POWER SYSTEMS ENGINEER, SHAHID S 296.32 MO DEPRESSIVE RECURRENT MODERATE 02/17/2012 BEN POWER SYSTEMS ENGINEER, SHAHID S 300.02 AN GEN ANXIETY 02/17/2012 BEN POWER SYSTEMS ENGINEER, SHAHID S 296.32 MO DEPRESSIVE RECURRENT MODERATE 02/17/2012 BEN POWER SYSTEMS ENGINEER, SHAHID S 300.02 AN GEN ANXIETY 08/11/2012 787.91 DIARRHEA 08/11/2012 BEN POWER SYSTEMS ENGINEER, SHAHID S 787.91 DIARRHEA 08/11/2012 787.91 DIARRHEA 08/11/2012 TEVIN PETERSON, BEHZAD A 787.91 DIARRHEA 08/11/2012 HERNANDEZ TIA PHILLIPSA K 787.91 DIARRHEA 08/11/2012 BEN POWER SYSTEMS ENGINEER, SHAHID S 787.91 DIARRHEA 08/11/2012 TEVIN PETERSON, BEHZAD A 787.91 DIARRHEA 08/11/2012 BEN POWER SYSTEMS ENGINEER, SHAHID S 787.91 DIARRHEA 08/11/2012 MIAN BACH, JESSIE Haynes 787.91 DIARRHEA 08/11/2012 BEN POWER SYSTEMS ENGINEER, SHAHID S 787.91 DIARRHEA 08/11/2012 TEVIN PETERSON, BEHZAD A 787.91 DIARRHEA 08/11/2012 TEVIN PHD, BEHZAD A 787.91 DIARRHEA 08/11/2012 BEN POWER SYSTEMS ENGINEER, SHAHID S 787.91 DIARRHEA 08/11/2012 BEN POWER SYSTEMS ENGINEER, SHAHID S 787.91 DIARRHEA 08/11/2012 BEN POWER SYSTEMS ENGINEER, SHAHID S 787.91 DIARRHEA 08/11/2012 BEN POWER SYSTEMS ENGINEER, SHAHID S 787.91 DIARRHEA 08/11/2012 JD BURGESS MD 787.91 DIARRHEA 08/11/2012 BEN POWER SYSTEMS ENGINEER, SHAHID S 787.91 DIARRHEA 08/11/2012 HERNANDEZ DO, REBECCA K 787.91 DIARRHEA 08/11/2012 BEN POWER SYSTEMS ENGINEER, SHAHID S 787.91 DIARRHEA 08/11/2012 BEN POWER SYSTEMS ENGINEER, SHAHID S 787.91 DIARRHEA 01/26/2013 BEN POWER SYSTEMS ENGINEER, SHAHID S 719.41 PAIN- SHOULDER 01/26/2013 719.41 PAIN- SHOULDER 01/26/2013 TEVIN PETERSON, BEHZAD Edgar 719.41 PAIN- SHOULDER 01/26/2013 HERNANDEZ DOREBECCA K 719.41 PAIN- SHOULDER 01/26/2013 BEN LEVIN, SHAHID S 719.41 PAIN- SHOULDER 01/26/2013 TEVIN PETERSON, BEHZAD Edgar 719.41 PAIN- SHOULDER 01/26/2013 BEN TERRYN, SHAHID S 719.41 PAIN- SHOULDER 01/26/2013 JESSIE PAPPAS MD 719.41 PAIN- SHOULDER 01/26/2013 BEN LEVIN, SHAHID S 719.41 PAIN- SHOULDER 01/26/2013 TEVIN PETERSON, BEHZAD Edgar 719.41 PAIN- SHOULDER 01/26/2013 TEVIN PETERSON, BEHZAD Edgar 719.41 PAIN- SHOULDER 01/26/2013 BEN POWER SYSTEMS ENGINEER, SHAHID S 719.41 PAIN- SHOULDER 01/26/2013 BEN POWER SYSTEMS ENGINEER, SHAHID S 719.41 PAIN- SHOULDER 01/26/2013 BEN POWER SYSTEMS ENGINEER, SHAHID S 719.41 PAIN- SHOULDER 01/26/2013 BEN TERRYN, SHAHID S 719.41 PAIN- SHOULDER 01/26/2013 JD BURGESS MD 719.41 PAIN- SHOULDER 01/26/2013 BEN POWER SYSTEMS ENGINEER, SHAHID S 719.41 PAIN- SHOULDER 01/26/2013 HERNANDEZ DOTIAA K 719.41 PAIN- SHOULDER 01/26/2013 BEN POWER SYSTEMS ENGINEER, SHAHID S 719.41 PAIN- SHOULDER 01/26/2013 BEN POWER SYSTEMS ENGINEER, SHAHID S 719.41 PAIN- SHOULDER 08/02/2013 JESSIE PAPPAS MD Ot 276.1 08/02/2013 JESSIE PAPPAS MD Ot 276.8 08/02/2013 MIAN BACH, JESSIE M Ot 300.00 08/02/2013 MIAN BACH, JESSIE M Ot 305.1 08/02/2013 MIAN BACH, JESSIE M Ot 305.20 08/02/2013 MIAN BACH, JESSIE M Ot 311 08/02/2013 MIAN BACH, JESSIE M Ot 492.8 08/02/2013 MIAN BACH, JESSIE M Ot 780.52 08/02/2013 MIAN BACH, JESSIE M Ot 783.0 08/02/2013 MIAN BACH, JESSIE M Ot 785.0 08/02/2013 MIAN BACH, JESSIE M Ot V03.82 08/02/2013 MIAN BACH, JESSIE M Ot V04.81 08/02/2013 MIAN BACH, JESSIE M Ot V10.05 08/04/2013 REBECCA HERNANDEZ DO 786.05 SHORTNESS OF BREATH 08/04/2013 MYRA CONTRERAS APRNNDA S 786.05 SHORTNESS OF BREATH 08/04/2013 TEVIN PHD, BEHZAD A 786.05 SHORTNESS OF BREATH 08/04/2013 BEN LEVIN SHAHID S 786.05 SHORTNESS OF BREATH 08/04/2013 JESSIE PAPPAS MD 786.05 SHORTNESS OF BREATH 08/04/2013 BEN LEVIN SHAHID S 786.05 SHORTNESS OF BREATH 08/04/2013 TEVIN PHD, BEHZAD A 786.05 SHORTNESS OF BREATH 08/04/2013 TEVIN PHD, BEHZAD A 786.05 SHORTNESS OF BREATH 08/04/2013 BEN LEVIN SHAHID S 786.05 SHORTNESS OF BREATH 08/04/2013 BEN LEVIN, SHAHID S 786.05 SHORTNESS OF BREATH 08/04/2013 BEN LEVIN SHAHID S 786.05 SHORTNESS OF BREATH 08/04/2013 BEN LEVIN SHAHID S 786.05 SHORTNESS OF BREATH 08/04/2013 JD BURGESS MD 786.05 SHORTNESS OF BREATH 08/04/2013 BEN LEVIN, SHAHID S 786.05 SHORTNESS OF BREATH 08/04/2013 HERNANDEZ DO REBECCA K 786.05 SHORTNESS OF BREATH 08/04/2013 BEN POWER SYSTEMS ENGINEER, SHAHID S 786.05 SHORTNESS OF BREATH 08/04/2013 BEN POWER SYSTEMS ENGINEER, SHAHID S 786.05 SHORTNESS OF BREATH 08/07/2013 BEN POWER SYSTEMS ENGINEER, SHAHID S 276.8 HYPOPOTASSEMIA 08/07/2013 TEVIN PETERSON, BEHZAD Edgar 276.8 HYPOPOTASSEMIA 08/07/2013 BEN TERRYN, SHAHID S 276.8 HYPOPOTASSEMIA 08/07/2013 MIAN BACH, JESSIE Haynes 276.8 HYPOPOTASSEMIA 08/07/2013 BEN LEVIN, SHAHID S 276.8 HYPOPOTASSEMIA 08/07/2013 TEVIN PHD, BEHZAD A 276.8 HYPOPOTASSEMIA 08/07/2013 TEVIN PHD, BEHZAD A 276.8 HYPOPOTASSEMIA 08/07/2013 BEN TERRYN, SHAHID S 276.8 HYPOPOTASSEMIA 08/07/2013 BENCHAN TERRYN, SHAHID S 276.8 HYPOPOTASSEMIA 08/07/2013 BEN POWER SYSTEMS ENGINEER, SHAHID S 276.8 HYPOPOTASSEMIA 08/07/2013 BEN POWER SYSTEMS ENGINEER, SHAHID S 276.8 HYPOPOTASSEMIA 08/07/2013 JENIFER BACH, JD 276.8 HYPOPOTASSEMIA 08/07/2013 BEN POWER SYSTEMS ENGINEER, SHAHID S 276.8 HYPOPOTASSEMIA 08/07/2013 REBECCA HERNANDEZ DO 276.8 HYPOPOTASSEMIA 08/07/2013 BENCHAN LEVIN, SHAHID S 276.8 HYPOPOTASSEMIA 08/07/2013 BENCHAN LEVIN, SHAHID S 276.8 HYPOPOTASSEMIA 09/05/2013 WILEY BACH, HANNAH P Ot 305.1 09/05/2013 WILEY BACH, HANNAH P Ot 311 09/05/2013 WILEY BACH, HANNAH Bailey Ot 492.8 09/05/2013 WILEY BACH, HANNAH Bailey Ot 785.0 09/05/2013 WILEY BACH, HANNAH Bailey Ot 820.09 09/05/2013 WILEY BACH, HANNAH Bailey Ot E000.8 09/05/2013 WILEY BACH, HANNAH Bailey Ot E849.8 09/05/2013 WILEY BACH, HANNAH Bailey Ot E888.9 09/05/2013 WILEY BACH, HANNAH Bailey Ot V10.05 11/08/2013 BEN LEVIN SHAHID S V70.0 EXAM - ROUTINE H&P 11/08/2013 BEN LEVIN, SHAHID S V76.12 MAMMOGRAM SCREENING 11/08/2013 TEVIN PHD, BEHZAD A V70.0 EXAM - ROUTINE H&P 11/08/2013 TVEIN PHD, BEHZAD A V76.12 MAMMOGRAM SCREENING 11/08/2013 TEVIN PHD, BEHZAD A V70.0 EXAM - ROUTINE H&P 11/08/2013 TEVIN PHD, BEHZAD A V76.12 MAMMOGRAM SCREENING 11/08/2013 BEN LEVIN SHAHID S V70.0 EXAM - ROUTINE H&P 11/08/2013 BEN LEVIN SHAHID S V76.12 MAMMOGRAM SCREENING 11/08/2013 MYRA CONTRERAS APRNNDA S V70.0 EXAM - ROUTINE H&P 11/08/2013 BEN LEVIN SHAHID S V76.12 MAMMOGRAM SCREENING 11/08/2013 BEN LEVIN, SHAHID S V70.0 EXAM - ROUTINE H&P 11/08/2013 BEN LEVIN SHAHID S V76.12 MAMMOGRAM SCREENING 11/08/2013 BEN LEVIN, SHAHID S V70.0 EXAM - ROUTINE H&P 11/08/2013 BEN LEVIN SHAHID S V76.12 MAMMOGRAM SCREENING 11/08/2013 JD BURGESS MD V70.0 EXAM - ROUTINE H&P 11/08/2013 JD BURGESS MD V76.12 MAMMOGRAM SCREENING 11/08/2013 BEN LEVIN SHAHID S V70.0 EXAM - ROUTINE H&P 11/08/2013 BEN LEVIN SHAHID S V76.12 MAMMOGRAM SCREENING 11/08/2013 HERNANDEZ DO, REBECCA K V70.0 EXAM - ROUTINE H&P 11/08/2013 HERNANDEZ DO, REBECCA K V76.12 MAMMOGRAM SCREENING 11/08/2013 BEN LEVIN SHAHID S V70.0 EXAM - ROUTINE H&P 11/08/2013 BEN TERRYN, SHAHID S V76.12 MAMMOGRAM SCREENING 11/08/2013 BEN LEVIN, SHAHID S V70.0 EXAM - ROUTINE H&P 11/08/2013 BEN POWER SYSTEMS ENGINEER, SHAHID S V76.12 MAMMOGRAM SCREENING 11/10/2013 BEN POWER SYSTEMS ENGINEER, SHAHID S 272.4 HYPERLIPIDEMIA 11/10/2013 BEN TERRYN, SHAHID S 733.00 OSTEOPOROSIS UNSPECIFIED 11/10/2013 TEVIN PHD, BEHZAD A 272.4 HYPERLIPIDEMIA 11/10/2013 TEVIN PHD, BEHZAD A 733.00 OSTEOPOROSIS UNSPECIFIED 11/10/2013 TEVIN PHD, BEHZAD A 272.4 HYPERLIPIDEMIA 11/10/2013 TEVIN PHD, BEHZAD A 733.00 OSTEOPOROSIS UNSPECIFIED 11/10/2013 BEN TERRYN, SHAHID S 272.4 HYPERLIPIDEMIA 11/10/2013 BEN TERRYN, SHAHID S 733.00 OSTEOPOROSIS UNSPECIFIED 11/10/2013 BEN TERRYN, SHAHID S 272.4 HYPERLIPIDEMIA 11/10/2013 BEN TERRYN, SHAHID S 733.00 OSTEOPOROSIS UNSPECIFIED 11/10/2013 BEN TERRYN, SHAHID S 272.4 HYPERLIPIDEMIA 11/10/2013 BEN TERRYN, SHAHID S 733.00 OSTEOPOROSIS UNSPECIFIED 11/10/2013 BEN TERRYN, SHAHID S 272.4 HYPERLIPIDEMIA 11/10/2013 BEN LEVIN, SHAHID S 733.00 OSTEOPOROSIS UNSPECIFIED 11/10/2013 JD BURGESS MD 272.4 HYPERLIPIDEMIA 11/10/2013 JD BURGESS MD 733.00 OSTEOPOROSIS UNSPECIFIED 11/10/2013 BEN TERRYN, SHAHID S 272.4 HYPERLIPIDEMIA 11/10/2013 BEN TERRYN, SHAHID S 733.00 OSTEOPOROSIS UNSPECIFIED 11/10/2013 HERNANDEZ DO, REBECCA K 272.4 HYPERLIPIDEMIA 11/10/2013 HERNANDEZ DO, REBECCA K 733.00 OSTEOPOROSIS UNSPECIFIED 11/10/2013 BEN POWER SYSTEMS ENGINEER, SHAHID S 272.4 HYPERLIPIDEMIA 11/10/2013 BEN TERRYN, SHAHID S 733.00 OSTEOPOROSIS UNSPECIFIED 11/10/2013 MYRA CONTRERAS APRNNDA S 272.4 HYPERLIPIDEMIA 11/10/2013 BEN LEVIN, SHAHID S 733.00 OSTEOPOROSIS UNSPECIFIED 12/14/2013 BEHZAD ABARCA PHD 793.80 ABNORMAL MAMMOGRAM 12/14/2013 BEHZAD ABARCA PHD 793.80 ABNORMAL MAMMOGRAM 12/14/2013 BEN LEVIN, SHAHID S 793.80 ABNORMAL MAMMOGRAM 12/14/2013 BEN LEVIN SHAHID S 793.80 ABNORMAL MAMMOGRAM 12/14/2013 BEN LEVIN SHAHID S 793.80 ABNORMAL MAMMOGRAM 12/14/2013 BEN LEVIN, SHAHID S 793.80 ABNORMAL MAMMOGRAM 12/14/2013 JD BURGESS MD 793.80 ABNORMAL MAMMOGRAM 12/14/2013 MYRA CONTRERAS APRNNDA S 793.80 ABNORMAL MAMMOGRAM 12/14/2013 REBECCA HERNANDEZ DO 793.80 ABNORMAL MAMMOGRAM 12/14/2013 BEN LEVIN SHAHID S 793.80 ABNORMAL MAMMOGRAM 12/14/2013 MYRA CONTRERAS APRNNDA S 793.80 ABNORMAL MAMMOGRAM 01/17/2014 BEN LEVIN, SHAHID S 386.11 VERTIGO- BENIGN PAROXYSMAL POSITIONAL 01/17/2014 BEN LEVIN, SHAHID S 783.21 WEIGHT LOSS 01/17/2014 BEN LEVIN, SHAHID S 787.03 VOMITING ALONE 01/17/2014 MYRA CONTRERAS APRNNDA S 386.11 VERTIGO- BENIGN PAROXYSMAL POSITIONAL 01/17/2014 BEN LEVIN, SHAHID S 783.21 WEIGHT LOSS 01/17/2014 BEN LEVIN, SHAHID S 787.03 VOMITING ALONE 01/17/2014 BEN LEVIN SHAHID S 386.11 VERTIGO- BENIGN PAROXYSMAL POSITIONAL 01/17/2014 BEN LEVIN SHAIHD S 783.21 WEIGHT LOSS 01/17/2014 BEN LEVIN SHAHID S 787.03 VOMITING ALONE 01/17/2014 JD BURGESS MD 386.11 VERTIGO- BENIGN PAROXYSMAL POSITIONAL 01/17/2014 JD BURGESS MD 783.21 WEIGHT LOSS 01/17/2014 JENIFER BACH, JD 787.03 VOMITING ALONE 01/17/2014 BEN POWER SYSTEMS ENGINEER, SHAHID S 386.11 VERTIGO- BENIGN PAROXYSMAL POSITIONAL 01/17/2014 BEN POWER SYSTEMS ENGINEER, SHAHID S 783.21 WEIGHT LOSS 01/17/2014 BEN POWER SYSTEMS ENGINEER, SHAHID S 787.03 VOMITING ALONE 01/17/2014 HERNANDEZ DO, REBECCA K 386.11 VERTIGO- BENIGN PAROXYSMAL POSITIONAL 01/17/2014 HERNANDEZ DO, REBECCA K 783.21 WEIGHT LOSS 01/17/2014 HERNANDEZ DO, REBECCA K 787.03 VOMITING ALONE 01/17/2014 BEN POWER SYSTEMS ENGINEER, SHAHID S 386.11 VERTIGO- BENIGN PAROXYSMAL POSITIONAL 01/17/2014 BEN POWER SYSTEMS ENGINEER, SHAHID S 783.21 WEIGHT LOSS 01/17/2014 BEN POWER SYSTEMS ENGINEER, SHAHID S 787.03 VOMITING ALONE 01/17/2014 BEN POWER SYSTEMS ENGINEER, SHAHID S 386.11 VERTIGO- BENIGN PAROXYSMAL POSITIONAL 01/17/2014 BEN POWER SYSTEMS ENGINEER, SHAHID S 783.21 WEIGHT LOSS 01/17/2014 BEN POWER SYSTEMS ENGINEER, SHAHID S 787.03 VOMITING ALONE 02/05/2014 RASHMI BACH, VERNON Haynes Ot 211.3 02/05/2014 RASHMI BACH, VERNON Ot 531.90 02/05/2014 RASHMI BACH, VERNON Haynes Ot 532.90 02/05/2014 RASHMI BACH, VERNON Haynes Ot V10.05 02/06/2014 BEN POWER SYSTEMS ENGINEER, SHAHID S 211.9 POLYP- GI 02/06/2014 BEN POWER SYSTEMS ENGINEER, SHAHID S 211.9 POLYP- GI 02/06/2014 JENIFER BACH, JD 211.9 POLYP- GI 02/06/2014 BEN POWER SYSTEMS ENGINEER, SHAHID S 211.9 POLYP- GI 02/06/2014 HERNANDEZ DO, REBECCA K 211.9 POLYP- GI 02/06/2014 BEN POWER SYSTEMS ENGINEER, SHAHID S 211.9 POLYP- GI 02/06/2014 BEN POWER SYSTEMS ENGINEER, SHAHID S 211.9 POLYP- GI 06/26/2014 HERNANDEZ DO, REBECCA K 496 COPD 06/26/2014 HERNANDEZ DO, REBECCA K 530.81 GERD 06/26/2014 BEN POWER SYSTEMS ENGINEER, SHAHID S 496 COPD 06/26/2014 BEN POWER SYSTEMS ENGINEER, HSAHID S 530.81 GERD 06/26/2014 BEN POWER SYSTEMS ENGINEER, SHAHID S 496 COPD 06/26/2014 BEN POWER SYSTEMS ENGINEER, SHAHID S 530.81 GERD 09/26/2014 SHAHID CONTRERAS CARRY ALL DRIVER Ot 793.80 10/08/2014 SHAHID CONTRERAS CARRY ALL DRIVER Ot 793.80 10/30/2014 BEN POWER SYSTEMS ENGINEER, SHAHID S 787.02 NAUSEA ALONE 04/08/2015 Ot 785.6 04/08/2015 Ot 789.00 04/08/2015 Ot V10.05 04/08/2015 Ot V81.5 04/08/2015 Ot 785.6 04/08/2015 Ot V10.05 04/08/2015 Ot V81.5 04/08/2015 Ot 550.90 04/08/2015 Ot V72.63 04/08/2015 Ot V74.8 04/08/2015 SHAHID CONTRERAS CARRY ALL DRIVER Ot 733.00 04/08/2015 SHAHID CONTRERAS CARRY ALL DRIVER Ot 793.89 04/08/2015 SHAHID CONTRERAS CARRY ALL DRIVER Ot V76.12 04/08/2015 SHAHID CONTRERAS CARRY ALL DRIVER Ot 793.80 04/08/2015 SHAHID CONTRERAS CARRY ALL DRIVER Ot 386.11 04/08/2015 SHAHID CONTRERAS CARRY ALL DRIVER Ot 492.8 04/08/2015 SHAHID CONTRERAS CARRY ALL DRIVER Ot 518.0 04/08/2015 SHAHID CONTRERAS CARRY ALL DRIVER Ot 780.94 04/08/2015 SHAHID CONTRERAS CARRY ALL DRIVER Ot 783.21 04/08/2015 SHAHID CONTRERAS CARRY ALL DRIVER Ot 787.03 04/08/2015 SHAHID CONTRERAS CARRY ALL DRIVER Ot 787.91 04/08/2015 RASHMI BACH, VERNON Haynes Ot V72.84 04/08/2015 SHAHID CONTRERAS CARRY ALL DRIVER Ot 793.80 04/08/2015 CIPRIANO MART POWER SYSTEMS ENGINEER Ot 787.01 04/11/2015 Ot 785.6 04/11/2015 Ot 789.00 04/11/2015 Ot V10.05 04/11/2015 Ot V81.5 04/11/2015 Ot 785.6 04/11/2015 Ot V10.05 04/11/2015 Ot V81.5 04/11/2015 Ot 550.90 04/11/2015 Ot V72.63 04/11/2015 Ot V74.8 04/11/2015 SHAHID CONTRERAS CARRY ALL DRIVER Ot 733.00 04/11/2015 SHAHID CONTRERAS CARRY ALL DRIVER Ot 793.89 04/11/2015 SHAHID CONTRERAS CARRY ALL DRIVER Ot V76.12 04/11/2015 SHAHID CONTRERAS CARRY ALL DRIVER Ot 793.80 04/11/2015 SHAHID CONTRERAS CARRY ALL DRIVER Ot 386.11 04/11/2015 SHAHID CONTRERAS CARRY ALL DRIVER Ot 492.8 04/11/2015 SHAHID CONTRERAS CARRY ALL DRIVER Ot 518.0 04/11/2015 SHAHID CONTRERAS CARRY ALL DRIVER Ot 780.94 04/11/2015 SHAHID CONTRERAS CARRY ALL DRIVER Ot 783.21 04/11/2015 SHAHID CONTRERAS CARRY ALL DRIVER Ot 787.03 04/11/2015 SHAHID CONTRERAS CARRY ALL DRIVER Ot 787.91 04/11/2015 RASHMI BACH, VERNON Haynes Ot V72.84 04/11/2015 SHAHID CONTRERAS CARRY ALL DRIVER Ot 793.80 04/11/2015 DELVIS BACH, FRANCISCO D Ot 300.00 01/29/2017 RASHMI BACH, VERNON Haynes Ot Z01.818 ENCOUNTER FOR OTHER PREPROCEDURAL EXAMIN 01/29/2017 RASHMI BACH, VERNON Haynes Ot Z85.038 PERSONAL HISTORY OF MALIGNANT NEOPLASM O 02/01/2017 RASHMI BACH, VERNON Haynes Ot K57.90 DVRTCLOS OF INTEST, PART UNSP, W/O PERF 02/01/2017 RASHMI BACH, VERNON Haynes Ot K63.5 POLYP OF COLON 02/01/2017 VERNON CARABALLO MD Ot K64.8 OTHER HEMORRHOIDS 02/01/2017 RASHMI BACH, VERNON Haynes Ot Z09 ENCNTR FOR F/U EXAM AFT TRTMT FOR COND O 02/01/2017 RASHMI BACH, VERNON Haynes Ot Z85.038 PERSONAL HISTORY OF MALIGNANT NEOPLASM O 02/01/2017 RASHMI BACH, VERNON Haynes Ot Z86.010 PERSONAL HISTORY OF COLONIC POLYPS 02/02/2017 RASHMI BACH, VERNON Haynes Ot K57.90 DVRTCLOS OF INTEST, PART UNSP, W/O PERF 02/02/2017 VERNON CARABALLO MD Ot K63.5 POLYP OF COLON 02/02/2017 RASHMI BACH, VERNON Haynes Ot K64.8 OTHER HEMORRHOIDS 02/02/2017 RASHMI BACH, VERNON Haynes Ot Z09 ENCNTR FOR F/U EXAM AFT TRTMT FOR COND O 02/02/2017 RASHMI BACH, VERNON Haynes Ot Z85.038 PERSONAL HISTORY OF MALIGNANT NEOPLASM O 02/02/2017 RASHMI BACH, VERNON Haynes Ot Z86.010 PERSONAL HISTORY OF COLONIC POLYPS Procedures Code [place] [address] XRAY SHOULDER LEFT COMP 2 VIEWS 01/31/2013 69592 JOINT INJECTION- INTERMEDIATE JOINT 06/22/2013 68325 PSYCH DIAGNOSTIC EVALUATION 07/26/2013 70112 MEASURE BLOOD OXYGEN LEVEL 08/04/2013 70839 ROUTINE VENIPUNCTURE 08/07/2013 01595 BMP 08/07/2013 0866856 GFR CALC (RESULT ONLY) 08/07/2013 53175 PSYTX PT&/FAMILY 45 MINUTES 09/01/2013 93349 MAMMOGRAM DX, JEROD 11/09/2013 16991 MAMMOGRAM, SCREENING 11/09/2013 52970 DEXA BONE DENSITY, AXIAL 11/09/2013 49682 ROUTINE VENIPUNCTURE 11/09/2013 07757 BONE MINERAL DENSITY, HEEL US (IN HOUSE) 11/09/2013 20615 CBC 11/09/2013 4071606 GFR CALC (RESULT ONLY) 11/09/2013 48581 CMP 11/09/2013 63008 LIPID PANEL 11/09 37721 PSYTX PT&/FAMILY 45 MINUTES 11/29/2013 10995 MAMMOGRAM DX, JEROD 12/21/2013 46342 PSYTX PT&/FAMILY 45 MINUTES 12/22/2013 90692 XRAY CHEST 2 VIEW 01/17/2014 18157 ROUTINE VENIPUNCTURE 01/17/[address] CHEST W/DYE 73347 CT ABDOMEN W/ AND W/O CONTRAST 01/17/2014 73193 CBC 01/18/2014 9183909 GFR CALC (RESULT ONLY) 01/18/2014 05005 CMP 01/18/2014 66150 A1C (RML) 2013 81185 TSH 01/18/2014 66488 ROUTINE VENIPUNCTURE 02/23/20147838837 GFR CALC (RESULT ONLY) 02/23/2014 70045 CMP 02/23/2014 72193 LIPID PANEL 02/23 09202 MAMMOGRAM DX, JEROD 07/18/2014 Results Encounters ACCT No. Visit Date/Time Discharge Status Pt. Type Provider Facility Loc./Unit Complaint [id number] 10/30/2014 13:34:00 10/30/2014 23: 59:59 CLS Outpatient SHAHID CONTRERAS APRN S [id number] 07/18/2014 14:10:00 07/18/2014 23: 59:59 CLS Outpatient MYRA CONTRERAS APRNNDA S [id number] 06/26/2014 15:48:00 06/26/2014 23: 59:59 CLS Outpatient REBECCA HERNANDEZ DO [id number] 05/16/2014 15:33:00 05/16/2014 23: 59:59 CLS Outpatient BNE LEVIN SHAHID S [id number] 02/23/2014 09:05:00 02/23/2014 23: 59:59 CLS Outpatient JD BURGESS MD [id number] 02/06/2014 15:10:00 02/06/2014 23: 59:59 CLS Outpatient MYRA CONTRERAS APRNNDA S [id number] 01/17/2014 15:44:00 01/17/2014 23: 59:59 CLS Outpatient BEN LEVIN SHAHID S [id number] 01/17/2014 15:44:00 01/17/2014 23: 59:59 CLS Outpatient BEN LEVIN SHAHID S [id number] 01/01/2014 12:02:00 01/01/2014 23: 59:59 CLS Outpatient MYRA CONTRERAS APRNNDA S [id number] 12/21/2013 14:55:00 12/21/2013 23: 59:59 CLS Outpatient BEHZAD ABARCA PHD [id number] 11/28/2013 15:00:00 11/28/2013 23: 59:59 CLS Outpatient BEHZAD ABARCA PHD [id number] 11/09/2013 12:55:00 11/09/2013 23: 59:59 CLS Outpatient SHAIHD CONTRERAS APRN [id number] 09/14/2013 08:18:00 09/14/2013 23: 59:59 CLS Outpatient JESSIE PAPPAS MD [id number] 08/31/2013 10:53:00 08/31/2013 23: 59:59 CLS Outpatient BEHZAD ABARCA PHD [id number] 08/07/2013 14:40:00 08/07/2013 23: 59:59 CLS Outpatient SHAHID CONTRERAS APRN [id number] 08/07/2013 14:40:00 08/07/2013 23: 59:59 CLS Outpatient SHAHID CONTRERAS APRN [id number] 08/04/2013 10:38:00 08/04/2013 23: 59:59 CLS Outpatient MARY PHILLIPS REBECCA Win [id number] 07/25/2013 09:56:00 07/25/2013 23: 59:59 CLS Outpatient BEHZAD ABARCA PHD [id number] 01/26/2013 13:40:00 01/26/2013 23: 59:59 CLS Outpatient SHAHID CONTRERAS APRN [id number] 08/26/2012 08:31:00 08/26/2012 23: 59:59 CLS Outpatient [id number] 06/22/2013 13:07:00 Document Registration
== END 2017-02-01 13:25 | disposition home or self-care (01) ==
LOC: ENDO 09:07
PROVIDERS: ATTEND Surgery
DX: Z09 Encounter for follow-up examination after completed treatment for conditions other than malignant neoplasm (principal); K63.5 Polyp of colon; Z86.010 Personal history of colon polyps; Z85.038 Personal history of other malignant neoplasm of large intestine; K64.8 Other hemorrhoids; K57.90 Diverticulosis of intestine, part unspecified, without perforation or abscess without bleeding
CPT/HCPCS: 88305

== ENCOUNTER 2017-09-13 16:15 | Emergency (ER) | payer MEDICARE, MEDICAID ==
[~2017-09-13] VITALS: Ht 157.5 cm; Wt 45.4 kg
[~2017-09-13 16:15] MED LIST changes: +BUDE10.2 IH; +CYPR4TAB PO; +METO-351 PO; +RT-ALBUINH IH
--- NOTE | 2017-09-13 16:40 | ED Fall/Injury ---
General Stated Complaint: RT SHOULDER INJ Source: patient, family (daughters) Exam Limitations: no limitations History of Present Illness Time seen by provider: 16:31 Initial Comments Patient has ER by private conveyance with her daughters and a chief complaint that last night she fell while at her cousin's house and did not turn the lights on. She denies striking her head, loss of consciousness or being on blood thinners. However she landed on her right side shoulder and then a stepstool fell onto her shoulder as she was trying to get back up. This causes significant amount of pain for which she used wuws-dph-wkcikzx pain medicines with marginal relief as well as ice and with more relief from heat. It hurts to move the arm and she has quite a bit of swelling and bruising today which worried her and she could not get the pain under control so she decided to come to the ER to have this evaluated. She is on Ativan, mirtazapine, Depakote which she takes routinely. She denies any dysuria or discharge. She has no prior history of trauma to this right shoulder and no history of surgery. Allergies and Home Medications Allergies Coded Allergies: No Known Drug Allergies (Verified , 04/23/09) Home Medications Albuterol Sulfate 6.7 Gm Hfa.aer.ad, 2 PUFF IH Q4H PRN for SHORTNESS OF BREATH, (Reported) Alprazolam 1 Mg Tablet, 1 MG PO TID, (Reported) Budesonide/Formoterol Fumarate 10.2 Gm Hfa.aer.ad, 2 PUFF IH BID, (Reported) Cyproheptadine HCl 4 Mg Tablet, 4 MG PO BID, (Reported) Divalproex Sodium 500 Mg Tab.er.24h, 500 MG PO HS, (Reported) Metoprolol Succinate 25 Mg Tab.er.24h, 25 MG PO HS, (Reported) Mirtazapine 30 Mg Tablet, 30 MG PO HS, (Reported) Omeprazole 20 Mg Capsule.dr, 20 MG PO DAILY, #30 Prescribed by: JAIME ESPAÑA on 02/05/14 09 Ondansetron 4 Mg/Udtablet Tab.rapdis, 4 MG PO Q4H PRN for NAUSEA/VOMITING, #10 Prescribed by: CIPRIANO MART on 04/08/15 1757 Potassium Chloride 20 Meq Tab.prt.sr, 20 MEQ PO BID, #3 Prescribed by: CIPRIANO MART on 04/08/15 0509 Constitutional: No chills, No fever, No malaise Eyes: Denies Blindness, Denies Blurred Vision, Denies Drainage Ears, Nose, Mouth, Throat: denies ear pain, denies ear discharge Respiratory: No cough, No dyspnea on exertion Cardiovascular: No chest pain, No palpitations Gastrointestinal: No abdominal pain, No constipation, No diarrhea, No nausea, No vomiting Genitourinary: No discharge, No dysuria Musculoskeletal: see HPI Skin: No pruritus, No rash Psychiatric/Neurological: Denies Headache, Denies Numbness, Denies Paresthesia Past Jpngulp-Kqgoio-Tyazfv Hx Patient Social History Alcohol Use: Denies Use Recreational Drug Use: No Smoking Status: Former Smoker Type Used: Cigarettes, Electronic/Vapor Former Smoker, Quit: Jan 28, 2015 Recent Foreign Travel: No Contact w/Someone Who Travel: No Recent Hopitalizations: No Immunizations Up To Date Tetanus Booster (TDap): Unknown Date of Pneumonia Vaccine: Aug 07, 2013 Date of Influenza Vaccine: Aug 07, 2013 Seasonal Allergies Seasonal Allergies: No Surgeries Surgeries: Gallbladder, Hysterectomy Respiratory Respiratory Disorders: COPD, Emphysema Neurological Neurological Disorders: Stroke Reproductive System Hx Reproductive Disorders: No Sexually Transmitted Disease: No Musculoskeletal Musculoskeletal Disorders: Osteoporosis HEENT Loss of Vision: Bilateral Hearing Impairment: Denies Cancer Cancer: Colon Psychosocial Behavioral Health Disorders: Sleep Difficulties, Anxiety Blood Transfusions Adverse Reaction to a Blood Tr: No Family Medical History Significant Family History: No Pertinent Family Hx Family Medial History: Patient reports no known family medical history. Physical Exam Vital Signs Vital Sign - Last 12Hours 09/13/17 16:59 Temp 97.6 Pulse 113 Resp 20 B/P (MAP) 117/84 Pulse Ox 93 Capillary Refill : General Appearance: WD/WN, mild distress HEENT: PERRL/EOMI, TMs normal, pharynx normal Neck: non-tender, full range of motion, normal inspection Cardiovascular: normal peripheral pulses, regular rate, rhythm, no edema Respiratory: chest non-tender, no respiratory distress, no accessory muscle use Peripheral Pulses: 2+ Radial Pulses (R), 2+ Radial Pulses (L) Gastrointestinal: non tender, soft Extremities: other (right shoulder some deformity and swelling as well as ecchymosis that is extending in a dependent fashion down the anterior biceps almost to the antecubital fossa. Tenderness to palpation.) Neurologic/Psychiatric: no motor/sensory deficits, alert, normal mood/affect, oriented x 3 Skin: normal color, warm/dry Dani Coma Score Best Eye Response: (4) Open Spontaneously Best Verbal Response: (5) Oriented Best Motor Response: (6) Obeys Commands Dani Total: 15 Progress/Results/Core Measures Results/Orders Lab Results Laboratory Tests Test 09/13/17 16:41 Range/Units Urine Color YELLOW Urine Clarity SLIGHTLY CLOUDY Urine pH 6 5-9 Urine Specific Bailey 1.020 1.016-1.022 Urine Protein 1+ H NEGATIVE Urine Glucose (UA) NEGATIVE NEGATIVE Urine Ketones 1+ H NEGATIVE Urine Nitrite NEGATIVE NEGATIVE Urine Bilirubin NEGATIVE NEGATIVE Urine Urobilinogen NORMAL NORMAL MG/DL Urine Leukocyte Esterase 3+ H NEGATIVE Urine RBC (Auto) 2+ H NEGATIVE Urine RBC 2-5 H /HPF Urine WBC >100 H /HPF Urine Squamous Epithelial Cells 5-10 /HPF Urine Crystals NONE /LPF Urine Bacteria MODERATE H /HPF Urine Casts NONE /LPF Urine Mucus NEGATIVE /LPF Urine Culture Indicated YES My Orders Orders - DOLLY WILLINGHAM Shoulder, Right, 3 Views (09/13/17 16:33) Fentanyl Injection (Sublimaze Injection (09/13/17 16:45) Ua Culture If Indicated (09/13/17 16:42) Urine Culture (09/13/17 16:41) Medications Given in ED Current Medications Medications Dose Ordered Sig/Maria T Route Start Time Stop Time Status Last Admin Dose Admin Fentanyl Citrate 50 mcg ONCE ONCE IM 09/13/17 16:45 09/13/17 16:46 DC 09/13/17 16:54 50 MCG Vital Signs/I&O Vital Sign - Last 12Hours 09/13/17 16:59 Temp 97.6 Pulse 113 Resp 20 B/P (MAP) 117/84 Pulse Ox 93 Progress Note : Time: 16:41 Progress Note Deformity right shoulder concerning for anterior dislocation versus fracture. We 'll obtain x-ray and give pain medicine. We'll also obtain a UA. Diagnostic Imaging Diagonstic Imaging: Xray Plain Films/CT/US/NM/MRI: other (right shoulder) Comments Fractured humeral neck comminuted, closed, nondisplaced, angulated mildly. [facility] [place], [place] NAME: PENNY FRAUSTO [facility] REC#: [id number] PT STATUS: REG ER : 1950 PHYSICIAN: DOLLY WILLINGHAM MD ADMIT DATE: 09/13/17/ER Draft Date of Exam:09/13/17 SHOULDER, RIGHT, 3 VIEWS INDICATION: Right shoulder pain after fall. COMPARISON: None available. TECHNIQUE: Three views of right shoulder. FINDINGS: There is an acute and impacted fracture of the proximal humerus. The dominant fracture is a transverse fracture through the surgical neck which is impacted by approximately 1 cm. It is difficult to ascertain if there is a fracture through the greater tuberosity or lesser tuberosity. No intra-articular split fracture of the humeral head. Inferior displacement of the humeral head could relate to glenohumeral joint effusion. IMPRESSION: Acute fracture of the surgical neck of the humerus which is impacted by 1 cm. Dictated on workstation # [id number] Dict: 09/13/17 1709 Trans: 09/13/17 1721 [facility] [id number] Interpreted by: SHAGGY CANELA MD Electronically signed by: Reviewed: Reviewed by Me Consults Consults : Consulting Physician: EDY GOLDEN DO Consults Notes [id number]: Discussed case and imaging and he wants the patient to call his clinic tomorrow morning to be seen no later than next week. Put her in a sling pain control. Departure Impression Impression: Primary Impression: Fall Qualified Codes: W19.XXXA - Unspecified fall, initial encounter Additional Impressions: Contusion Qualified Codes: S40.011A - Contusion of right shoulder, initial encounter Fx humeral neck Qualified Codes: S42.211A - Unspecified displaced fracture of surgical neck of right humerus, initial encounter for closed fracture Disposition: 01 HOME, SELF-CARE Condition: Stable Departure-Patient Inst. Decision time for Depature: 17:44 Referrals: [facility] (PCP/Family) Primary Care Physician Patient Instructions: How to Use a Shoulder Sling, Shoulder Fracture (DC) Add. Discharge Instructions: Use Tylenol 1000 mg every 8 hours or Motrin 600 mg every 8 hours. If this is not controlling her pain you may use the pain pill, hydrocodone every 6 hours. He may apply an ice pack over the shoulder and keeping the sling at all times. He may remove the sling for bathing. Please call Dr. Mark Nguyen [address] at [phone] tomorrow morning to get an appointment to be seen no later than next week. Scripts Hydrocodone/Acetaminophen (Hydrocodon -Acetaminophen 5-325) 1 Each Tablet 1 EACH PO Q6H Y for BREAKTHROUGH PAIN, #15 TAB 0 Refills Prov: DOLLY WILLINGHAM 09/13/17 Copy Copies To 1: REBECCA HERNANDEZ DO Copies To 2: EDY GOLDEN DO DOLLY WILLINGHAM Sep 13, 2017 16:40
[2017-09-13] MEDS ORDERED: fentaNYL INJECTION 100 MCG/2 ML AMP IM ONE (16:45)
[2017-09-13 16:48] LABS: BILIRUBIN,URINE NEGATIVE (NEGATIVE); KETONES,URINE 1+ (NEGATIVE); LEUKOCYTE ESTERASE ,URINE 3+ (NEGATIVE); NITRITE,URINE NEGATIVE (NEGATIVE); PH,URINE 6 (5-9); PROTEIN,URINE 1+ (NEGATIVE); UROBILINOGEN,URINE NORMAL (NORMAL)
[2017-09-13 16:54] LABS: WBC,URINE >100 /HPF
--- NOTE | 2017-09-13 17:21 | Diagnostic Imaging Report ---
INDICATION: Right shoulder pain after fall. COMPARISON: None available. TECHNIQUE: Three views of right shoulder. FINDINGS: There is an acute and impacted fracture of the proximal humerus. The dominant fracture is a transverse fracture through the surgical neck which is impacted by approximately 1 cm. It is difficult to ascertain if there is a fracture through the greater tuberosity or lesser tuberosity. No intra-articular split fracture of the humeral head. Inferior displacement of the humeral head could relate to glenohumeral joint effusion. IMPRESSION: Acute fracture of the surgical neck of the humerus which is impacted by 1 cm. Dictated by: Dictated on workstation # [id number]
--- OUTSIDE RECORDS SUMMARY | 2017-09-13 17:45 | XMS REPORT ---
Author Author SHAHID CONTRERAS [facility] Address [address] [place] [address] Care Team Providers Care [employer] Bi Consultant Name Role Phone SHAHID CONTRERAS Unavailable PROBLEMS Type Condition ICD9-CM Code [id number] Code Onset Dates Condition Status SNOMED Code Problem Age-related osteoporosis without current pathological fracture M81.0 Active 40096000 Problem Gastroesophageal reflux disease without esophagitis K21.9 Active 452050589 Problem Hyperlipidemia, unspecified hyperlipidemia type E78.5 Active 69129264 Problem Panic disorder without agoraphobia F41.0 Active 64944106 Problem Bipolar 1 disorder F31.9 Active 044050217 Problem History of colon cancer Z85.038 Active 785587947 Problem 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 Active 56620422 Problem Moderate mixed bipolar I disorder F31.62 Active 57937221 Problem Pulmonary emphysema, unspecified emphysema type J43.9 Active 74108244 Problem Chronic post-traumatic stress disorder (PTSD) F43.12 Active 269088556 ALLERGIES No Known Allergies SOCIAL HISTORY Never Assessed PLAN OF CARE Activity Details Follow Up 3 Months Reason:emphysema VITAL SIGNS Height 66 in 2017-01-18 Weight 114.3 lbs 2017-01-18 Temperature 97.8 degrees Fahrenheit 2017-01-18 Heart Rate 84 bpm 2017-01-18 Respiratory Rate 22 2017-01-18 BMI 18.45 kg/m2 2017-01-18 Blood pressure systolic 106 mmHg 2017-01-18 Blood pressure diastolic 76 mmHg 2017-01-18 MEDICATIONS Medication Instructions Dosage Frequency Start Date End Date Duration Status Omeprazole 20 MG TAKE ONE CAPSULE BY MOUTH BY MOUTH ONCE DAILY BEFORE A MEAL 90 Active Symbicort 160-4.5 MCG/ACT INHALE TWO PUFFS BY MOUTH TWICE DAILY 90 Active Xanax 1 MG Orally 3 times a day for anxiety 1 tablet March, 28 days Active ProAir HFA 108 (90 Base) MCG/ACT INHALE ONE TO TWO PUFFS BY MOUTH EVERY 4 HOURS NEEDED FOR SHORTNESS OF BREATH 90 Active Cyproheptadine HCl 4 MG Orally 2 times a day to increase appetite 1 tablet Aug, Active Mirtazapine 30 MG Orally Once at bedtime for depression and sleep 1 tablet Active Depakote ER 500 MG Orally Once a day at HS 1 tab 30 Active RESULTS No Results PROCEDURES Procedure Date Ordered Result Body Site [facility] January 18, 2017 VENIPBILL, ROUTINE* January 18, 2017 [facility] VISIT ESTABLISHED PATIENT January 18, 2017 IMMUNIZATIONS No Known Immunizations MEDICAL (GENERAL) HISTORY Type Description Date Medical History Anxiety Medical History GERD Medical History depression Medical History hyperlipidemia Medical History PTSD (post-traumatic stress disorder) Surgical History Right hip surgery 2012 Surgical History Gallbladder Surgical History Hernia Surgical History colon caner 1989 Surgical History Hysterectomy Hospitalization History child 2012 Hospitalization History Right hip surgery Hospitalization History Hernia Hospitalization History Gallbladder Hospitalization History Colon Cancer
[2017-09-13] MEDS ORDERED: HYDR-3812 PO (17:49)
--- OUTSIDE RECORDS SUMMARY | 2017-09-13 17:52 | XMS REPORT ---
Author Author RUFINO MEEKS [facility] Address [address] [place] [address] Care Team Providers Care Utilization Management Rn Name Role Phone RUFINO MEEKS Unavailable PROBLEMS Type Condition ICD9-CM Code [id number] Code Onset Dates Condition Status SNOMED Code Problem Age-related osteoporosis without current pathological fracture M81.0 Active 85494543 Problem Gastroesophageal reflux disease without esophagitis K21.9 Active 742479970 Problem Hyperlipidemia, unspecified hyperlipidemia type E78.5 Active 18310297 Problem Panic disorder without agoraphobia F41.0 Active 98155221 Problem Bipolar 1 disorder F31.9 Active 003615382 Problem History of colon cancer Z85.038 Active 461058590 Problem 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 Active 58531783 Problem Moderate mixed bipolar I disorder F31.62 Active 55715127 Problem Pulmonary emphysema, unspecified emphysema type J43.9 Active 72592551 Problem Chronic post-traumatic stress disorder (PTSD) F43.12 Active 393818920 ALLERGIES No Known Allergies SOCIAL HISTORY Never Assessed PLAN OF CARE Activity Details Follow Up 3 Months Reason: VITAL SIGNS Height 66 in 2016-12-08 Weight 121.2 lbs 2016-12-08 Heart Rate 108 bpm 2016-12-08 Respiratory Rate 22 2016-12-08 BMI 19.56 kg/m2 2016-12-08 Blood pressure systolic 96 mmHg 2016-12-08 Blood pressure diastolic 63 mmHg 2016-12-08 MEDICATIONS Medication Instructions Dosage Frequency Start Date End Date Duration Status Mirtazapine 30 MG Orally Once at bedtime for depression and sleep 1 tablet Active Omeprazole 20 MG TAKE ONE CAPSULE BY MOUTH BY MOUTH ONCE DAILY BEFORE A MEAL 90 Active Depakote ER 500 MG Orally Once a day at HS 1 tab Active Symbicort 160-4.5 MCG/ACT INHALE TWO PUFFS BY MOUTH TWICE DAILY 90 Active Cyproheptadine HCl 4 MG Orally 2 times a day to increase appetite 1 tablet Aug, Active Atorvastatin Calcium 20 mg Orally Once a day 1 tablet 24h May, 90 days Active Toprol XL 25 MG Orally Once a day at bedtime 1 tablet 90 Active Xanax 1 MG Orally 3 times a day for anxiety 1 tablet March, 28 days Active ProAir HFA 108 (90 Base) MCG/ACT INHALE ONE TO TWO PUFFS BY MOUTH EVERY 4 HOURS NEEDED FOR SHORTNESS OF BREATH 90 Active RESULTS No Results PROCEDURES Procedure Date Ordered Result Body Site [facility] VISIT ESTABLISHED PATIENT Dec 08, 2016 IMMUNIZATIONS No Known Immunizations MEDICAL (GENERAL) HISTORY [...]
[2017-09-13] MEDS ORDERED: NITR100C PO (17:53)
--- OUTSIDE RECORDS SUMMARY | 2017-09-13 17:53 | XMS REPORT ---
Author Author RUFINO MEEKS [facility] Address [address] [place] [address] Care Team Providers Care Wheel Press Operator Name Role Phone RUFINO MEEKS Unavailable PROBLEMS Type Condition ICD9-CM Code [id number]-[id number] Code Onset Dates Condition Status SNOMED Code Problem Age-related osteoporosis without current pathological fracture M81.0 Active 48968405 Problem Gastroesophageal reflux disease without esophagitis K21.9 Active 838254905 Problem Hyperlipidemia, unspecified hyperlipidemia type E78.5 Active 35122005 Problem Panic disorder without agoraphobia F41.0 Active 69341399 Problem Bipolar 1 disorder F31.9 Active 589265899 Problem History of colon cancer Z85.038 Active 305382479 Problem 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 Active 96048939 Problem Moderate mixed bipolar I disorder F31.62 Active 45361398 Problem Pulmonary emphysema, unspecified emphysema type J43.9 Active 54090532 Problem Chronic post-traumatic stress disorder (PTSD) F43.12 Active 885680931 ALLERGIES Unknown Allergies SOCIAL HISTORY No smoking Hx information available PLAN OF CARE VITAL SIGNS MEDICATIONS Medication Instructions Dosage Frequency Start Date End Date Duration Status Xanax 1 MG Orally 3 times a day for anxiety 1 tablet March, Active RESULTS No Results PROCEDURES No Known procedures IMMUNIZATIONS No Known Immunizations
--- OUTSIDE RECORDS SUMMARY | 2017-09-13 17:56 | XMS REPORT ---
Author Author RUFINO MEEKS [facility] Address [address] [place] [address] Care Team Providers Care Haulage Boss Name Role Phone RUFINO MEEKS Unavailable PROBLEMS Type Condition ICD9-CM Code [id number] Code Onset Dates Condition Status SNOMED Code Problem Hyperlipidemia, unspecified hyperlipidemia type E78.5 Active 19091360 Problem Moderate mixed bipolar I disorder F31.62 Active 87017723 Problem Gastroesophageal reflux disease without esophagitis K21.9 Active 157224568 Problem Panic disorder without agoraphobia F41.0 Active 94495932 Problem Age-related osteoporosis without current pathological fracture M81.0 Active 71526066 Problem Chronic obstructive pulmonary disease with acute exacerbation J44.1 Active 434358114 Problem Pulmonary emphysema, unspecified emphysema type J43.9 Active 30230408 Problem Chronic post-traumatic stress disorder (PTSD) F43.12 Active 046675177 Problem 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 Active 98444368 Problem Bipolar 1 disorder F31.9 Active 314605024 Problem History of colon cancer Z85.038 Active 436087761 ALLERGIES No Known Allergies SOCIAL HISTORY Never Assessed PLAN OF CARE Activity Details Follow Up 4 Months Reason: VITAL SIGNS Height 66 in 2017-03-04 Weight 120.0 lbs 2017-03-04 Heart Rate 84 bpm 2017-03-04 Respiratory Rate 22 2017-03-04 BMI 19.37 kg/m2 2017-03-04 Blood pressure systolic 97 mmHg 2017-03-04 Blood pressure diastolic 60 mmHg 2017-03-04 MEDICATIONS Medication Instructions Dosage Frequency Start Date End Date Duration Status Cyproheptadine HCl 4 MG Orally 2 times a day to increase appetite 1 tablet Aug, Active Mirtazapine 30 MG Orally Once at bedtime for depression and sleep 1 tablet Active Omeprazole 20 MG TAKE ONE CAPSULE BY MOUTH BY MOUTH ONCE DAILY BEFORE A MEAL 90 Active Xanax 1 MG Orally 3 times a day for anxiety 1 tablet March, Active ProAir HFA 108 (90 Base) MCG/ACT INHALE ONE TO TWO PUFFS BY MOUTH EVERY 4 HOURS NEEDED FOR SHORTNESS OF BREATH 90 Active Symbicort 160-4.5 MCG/ACT INHALE TWO PUFFS BY MOUTH TWICE DAILY 90 Active Depakote ER 500 MG Orally Once a day at HS 1 tab Active RESULTS No Results PROCEDURES Procedure Date Ordered Result Body Site [facility] VISIT ESTABLISHED PATIENT March 04, 2017 IMMUNIZATIONS No Known Immunizations MEDICAL (GENERAL) HISTORY Type Description Date Medical History Anxiety Medical History GERD Medical History depression Medical History hyperlipidemia Medical History PTSD (post-traumatic stress disorder) Surgical History Right hip surgery 2012 Surgical History Gallbladder Surgical History Hernia Surgical History colon caner 1989 Surgical History Hysterectomy Surgical History colonoscopy Tubular adenoma 01/2017 Hospitalization History child 2012 Hospitalization History Right hip surgery Hospitalization History Hernia Hospitalization History Gallbladder Hospitalization History Colon Cancer
[2017-09-13 18:06] VITALS: BP 123/72
== END 2017-09-13 18:06 | disposition home or self-care (01) ==
LOC: EDUNIT# 16:15 → ER 16:17
DX: S42.211A Unspecified displaced fracture of surgical neck of right humerus, initial encounter for closed fracture (principal); G47.9 Sleep disorder, unspecified; F41.9 Anxiety disorder, unspecified; J43.9 Emphysema, unspecified; M81.0 Age-related osteoporosis without current pathological fracture; Z90.710 Acquired absence of both cervix and uterus; Z87.891 Personal history of nicotine dependence
CPT/HCPCS: 73030; 81000; 87077; 87088; 87186; 99284

== ENCOUNTER 2017-09-21 13:27 | Outpatient (CLI) | payer MEDICARE, MEDICAID ==
[~2017-09-21] VITALS: Ht 157.5 cm; Wt 49.9 kg
[~2017-09-21 13:27] MED LIST changes: +HYDR-3812 PO; +NITR100C PO
[2017-09-21] MEDS ORDERED: ALPR1TAB7 PO ×2 (13:49)
[2017-09-21 13:54] VITALS: BP 108/95
[2017-09-22] MEDS ORDERED: OXYC-471 PO ×2 (18:02)
== END 2017-09-21 14:29 ==
LOC: PREOP 13:27
PROVIDERS: ATTEND Orthopaedic Surgery Orthopaedic Trauma
DX: Z01.810 Encounter for preprocedural cardiovascular examination (principal); Z11.2 Encounter for screening for other bacterial diseases; S52.101A Unspecified fracture of upper end of right radius, initial encounter for closed fracture; X58.XXXA Exposure to other specified factors, initial encounter
CPT/HCPCS: 87081; 93005

== ENCOUNTER → 2017-09-22 | Day surgery (SDC) | payer MEDICARE, MEDICAID ==
[~2017-09-22] VITALS: Ht 157.5 cm; Wt 49.9 kg
[~2017-09-22] MED LIST changes: +ALPR1TAB7 PO; +DEXAMETHASONE 10 MG/ML (DECADRON) 1 ML VIAL ONE; +GLYCOPYRROLATE 0.2 MG/ML (ROBINUL) 2 ML VIAL ONE; +LACTATED RINGERS 1,000 ML IV PRN; +LIDOCAINE PF 2% 5 ML (XYLOCAINE) VIAL ONE; +MIDAZOLAM 2 MG/2 ML (VERSED) VIAL ONE; +NEOSTIGMINE (BLOXIVERZ ) 1 MG/1ML 10 ML VIAL ONE; +ONDANSETRON 4 MG/2 ML (SDV) Z0FRAN IVP PRN; +ONDANSETRON 4 MG/2 ML (SDV) Z0FRAN ONE; +OXYC-471 PO; +PHENYLEPHRINE 100 MCG/ML 10 ML (ANESTHESIA) SYR ONE; +ROCURONIUM 50 MG/5 ML (ZEMURON) VIAL IV ONE; +ROPIVACAINE 5MG/ML 30ML VIAL ONE; +SEVOFLURANE (ULTANE) 15 ML INHAL SOLN ONE; +ceFAZolin 1 GM/NS 50 ML IVPB IV ONE; +fentaNYL INJECTION 100 MCG/2 ML AMP ONE; +morphine INJ 10 MG/ML 1ML (SYR OR VIAL) IVP PRN; +proPOfol 200 MG/20 ML (DIPRIVAN) VIAL IV ONE
[2017-09-22 13:37] VITALS: BP 131/51
--- NOTE | 2017-09-22 15:13 | Anesthesia-Peripheral Nerve Bl ---
Procedure Start/Stop Time Date of Procedure: Sep 22, 2017 Start Time: 14:55 Stop Time: 15:05 Peripheral Nerve Block Peripheral Nerve Blockade Risk/Benefits/Alternatives discussed, including IV injection leading to complications or seizures, nerve irritation or damage, pneumothorax, total spinal anesthesia, injection, and/or bleeding. Approach: Right ISB Side Confirmed: RIGHT Indication: Req Pain Mgmt by Surgeon Specifically requested for management of pain by: Dr. Flores Patient Condition Patient Condition: Sedate/contact maintained Procedure Prepartation: Chlorhexidine Position: Sitting Groom: Short-bevel Needle (s) Size: 22g 2" Technique: Ultrasound (Placed under ultrasound guidance with trunks easily identified.) Sedation Given: Midazolam (2 mg) Injectate: ropivacaine Concentration %: 0.5 Volume (ml): 20 Epinephrine used: No Narrative Injection was made incrementally with constant monitoring. Aspiration every (mls): 5 Blood Aspirated: No Pain on injection noted: No Normal Resistance on injection: Yes Events Events: None:easy well tolerated Sucess: Full evaluation-pending Patient Conditon Post Peripheral Nerve Block Post Peripheral Nerve Block Vital Signs: Blood Pressure: Systolic Diastolic Heart Rate LILIYA SAN CRNA Sep 22, 2017 15:13
--- NOTE | 2017-09-22 18:01 | Operative Report ---
Operative Report Date of Procedure/Surgery Sep 22, 2017 Surgeon (s) EDY GOLDEN DO Accounts Specialist (s): Kevin Morrison PA-C Post-Operative Diagnosis Displaced, 3-part fracture Right proximal humerus Procedure Performed ORIF Right proximal humerus fracture Description of Procedure Anesthesia Type: General Estimated blood loss (mL): 200 Specimen(s) collected/removed None Description of the Procedure ORIF Right proximal humerus fracture Findings of the Procedure Unstable, displaced 3-part fracture Right proximal humerus; poor bone quality Allergies and Home Medications Allergies Coded Allergies: No Known Drug Allergies (Unverified , 09/21/17) Home Medications Albuterol Sulfate 6.7 Gm Hfa.aer.ad, 2 PUFF IH Q4H PRN for SHORTNESS OF BREATH, (Reported) Alprazolam 1 Mg Tablet, 1 MG PO TID, (Reported) Divalproex Sodium 500 Mg Tab.er.24h, 500 MG PO HS, (Reported) Hydrocodone/Acetaminophen 1 Each Tablet, 1 EACH PO Q6H PRN for BREAKTHROUGH PAIN , #15 Ref 0 Prescribed by: DOLLY WILLINGHAM on 09/13/17 1749 Mirtazapine 30 Mg Tablet, 30 MG PO HS, (Reported) EDY GOLDEN DO Sep 22, 2017 18:01
--- NOTE | 2017-09-22 18:10 | Discharge Inst-Surgical ---
Discharge Inst-Surgical Depart Medication/Instructions New, Converted or Re-Newed RX: RX on Chart Patient Instructions Do not bear weight on your Right arm and no lifting with your Right arm; sling for comfort only; come out of your sling 2-3 times/day and do your range of motion exercises as instructed. Consults/Follow Up Goal/Follow Up Appt.: Please follow-up at the [address] office in 2 weeks; please call the office to confirm your appointment. Activity Activity as Tolerated: No Activity Instructions: Avoid Pulling & Pushing, Avoid Stress to Incision Driving Instructions: No Driving/Refer to Dr. Cardenas Discharge Diet: No Restrictions Symptoms to Report to Physicia: Swelling Increased, Bleeding Excessive, Fever Over 101 Degrees F Skin/Wound Care Infection Signs and Symptoms: Increased Redness, Foul Odor of Wound, Increased Drainage, Increased Swelling, Temperature Above 101 F Bathing Instructions: Shower (you may remove your dressings in 4 days and shower, no baths or soaking tubs; keep your incision clean and dry.) Steristrips: Leave Steristrips Intact Ice Pack: Ice On and Off Site EDY GOLDEN DO Sep 22, 2017 18:10
--- NOTE | 2017-09-22 18:28 | Diagnostic Imaging Report ---
INDICATION: Proximal humerus repair. FINDINGS: Provided fluoroscopic images demonstrate open reduction internal fixation of a proximal humeral neck fracture with a lateral plate and screws. Post-reduction alignment appears anatomic. IMPRESSION: 1. Intraoperative imaging during open reduction internal fixation of proximal right humeral fracture. Dictated by: Dictated on workstation # [id number]
[2017-09-22 19:15] VITALS: BP 116/60
[2017-09-22 21:05] VITALS: BP 114/58
[2017-09-22 21:10] VITALS: BP 114/58
--- NOTE | 2017-09-22 23:41 | OPERATIVE REPORT ---
DATE OF SERVICE: 09/22/2017 PREOPERATIVE DIAGNOSIS: Displaced, unstable three-part fracture of right proximal humerus. POSTOPERATIVE DIAGNOSIS: Displaced, unstable three-part fracture of right proximal humerus. PROCEDURE PERFORMED: Open reduction and internal fixation of unstable, displaced three-part fracture of right proximal humerus. ATTENDING SURGEON: Dr. Edy Golden. COOPERATIVE EXTENSION AGENT: Kevin Morrison PA-C; Ms. Morrison's call center assistant was required for this case secondary to the complexity of the case, to increase the efficacy and efficiency of the procedure, the procedure would not have been possible without the first aid instructor. ANESTHESIA: General endotracheal in addition to an interscalene nerve block, right upper extremity. ESTIMATED BLOOD LOSS: 200 mL. COMPLICATIONS: None. SPECIMENS: None. DRAINS: None. BRIEF HISTORY AND INDICATIONS: The patient is a very pleasant 67-year-old right-hand dominant female that injured her right shoulder secondary to a mechanical ground level fall, landing onto her right side. She presented to the Emergency Department at [facility] for evaluation and treatment subsequent to her fall, approximately one and a half weeks ago. Upon presentation to the ED, plain radiographs of the patient's right shoulder demonstrated a displaced unstable fracture of the right proximal humerus. The patient was placed in a standard arm sling and referred to our office for outpatient orthopedic followup and definitive treatment. I discussed the patient's treatment options in detail with her including operative and nonoperative treatment. A detailed discussion included the risks, benefits, potential complications and expected outcomes of both nonoperative and operative management. After having this very detailed discussion, the patient elected to proceed originally with nonoperative management. The patient was unable to tolerate her pain and her instructions while at home. As such, the patient elected to proceed with operative fixation of her injury after the detailed discussion of the risks and benefits. Those risks that were discussed included injury to the surrounding neurovascular structures including the axillary nerve, significant bleeding, infection, malunion and nonunion, irritation of the hardware, hardware failure, which could result in secondary surgical procedures. After having this detailed discussion, the patient gave informed consent to proceed as planned after all of her questions were answered to her satisfaction. Preoperatively, the patient's right upper extremity was otherwise stable, motor and sensory function was grossly intact throughout and her right hand was well perfused, the skin was intact. There were no open wounds. DESCRIPTION OF PROCEDURE: After correctly identifying the patient as the patient in the preoperative holding area and after her right upper extremity was appropriately marked, the patient then received an interscalene block per anesthesia of the right upper extremity and then she was transferred to the operating room suite. Once in the operating room, she had successful induction of general endotracheal anesthesia and she was placed in the beach chair position on a radiolucent OR table. All bony prominences were meticulously padded. The right upper extremity was then prepped and draped in the routine sterile fashion. Prior to beginning making the incisions, we completed an operating room timeout with all parties involved in the case and agreement and verified appropriate infusion of prophylactic antibiotics. Using a sterile marking pen, I marked out my planned anterolateral incision on the skin. This incision marking extended from the anterolateral corner of the acromion and extended distally for approximately 8 cm. The position of the axillary nerve was marked on the skin prior to making incision. A 10 blade scalpel was then used to incise the skin and subcutaneous tissue. Blunt Metzenbaum scissors were then used to dissect the superficial fascia. I then identified the raphae between the anterior and medial deltoid and then raphae was incised with blunt Metzenbaum scissors. The split in the deltoid was retracted with self-retaining retractors. At this point, I then palpated the anterior motor branch of the axillary nerve digitally and this nerve was protected throughout the entirety of the case. The fracture site was then identified and debrided in the usual fashion with both sharp and blunt techniques. I then placed a 2-0 threaded K-wire into the humeral head to use as a reduction joystick. Number 5 Ethibond sutures were then placed in the tendon of the rotator cuff, to also use for fixation and reduction techniques. I then used a fibular strut allograft, measured with fluoroscopic imaging to the appropriate size, then a bone saw was then used to cut the fibular allograft to the appropriate size and then the allograft was introduced into the intramedullary canal of the proximal humerus to use as a reduction tool. Once the allograft was placed, reduction maneuvers were completed with K-wires and the sutures and held temporarily in place with K-wires. The Synthes proximal humerus plate from the small fragment was then introduced into the wound, slid underneath the axillary nerve and held temporarily in place with K-wires. After fluoroscopic imaging confirmed appropriate position of the plate, I then began placing fixation through the plate with a series of locking and nonlocking screws. This was achieved after confirming that the position of the plate and the reduction was acceptable with fluoroscopic imaging. Once the fixation was complete through the plate, the #5 Ethibond suture that had been introduced through the plate prior to fixation was then tied as the final step in fixation. Final imaging confirmed appropriate placement of the hardware and acceptable reduction of the fracture. The wound was then irrigated with copious amounts of sterile saline and then followed by standard closure using 0 Vicryl for the deep fascia, 2-0 Vicryl for the subcutaneous tissue and then a running 4-0 Monocryl subcuticular stitch and Steri-Strips for the skin. The patient has sterile dressing applied and was awakened and extubated in the operating room without complications. She was then transferred to the PACU in stable condition. She tolerated the procedure quite well. All counts were correct at the end of this case. Job ID: [id number] DocumentID: [id number] Dictated Date: 09/22/2017 18:28:43 Storage Engineer Date: 09/22/2017 23:41:13 Dictated By: EDY GOLDEN
--- OUTSIDE RECORDS SUMMARY | 2017-09-23 14:01 | XMS REPORT ---
Author Author RUFINO MEEKS Organization [facility] Address [address] [place] [address] Care Team Providers Care Search Advertising Strategist Name Role Phone RUFINO EMEKS Unavailable PROBLEMS Type Condition ICD9-CM Code [id number] Code Onset Dates Condition Status SNOMED Code Problem Hyperlipidemia, unspecified hyperlipidemia type E78.5 Active 46272183 Problem Moderate mixed bipolar I disorder F31.62 Active 77837145 Problem Gastroesophageal reflux disease without esophagitis K21.9 Active 428168752 Problem Panic disorder without agoraphobia F41.0 Active 36198021 Problem Age-related osteoporosis without current pathological fracture M81.0 Active 29800270 Problem Chronic obstructive pulmonary disease with acute exacerbation J44.1 Active 813236080 Problem Pulmonary emphysema, unspecified emphysema type J43.9 Active 00962251 Problem Chronic post-traumatic stress disorder (PTSD) F43.12 Active 079361044 Problem 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 Active 66474442 Problem Bipolar 1 disorder F31.9 Active 202554180 Problem History of colon cancer Z85.038 Active 469401826 ALLERGIES No Information SOCIAL HISTORY Never Assessed PLAN OF CARE VITAL SIGNS MEDICATIONS Medication Instructions Dosage Frequency Start Date End Date Duration Status Xanax 1 MG Orally 3 times a day for anxiety 1 tablet March, 30 days Active RESULTS No Results PROCEDURES No Known procedures IMMUNIZATIONS No Known Immunizations MEDICAL (GENERAL) HISTORY [...]
== END | disposition home or self-care (01) ==
LOC: SDC 13:41
PROVIDERS: ATTEND Orthopaedic Surgery Orthopaedic Trauma
DX: S42.291A Other displaced fracture of upper end of right humerus, initial encounter for closed fracture (principal); W19.XXXA Unspecified fall, initial encounter; Z79.899 Other long term (current) drug therapy; Z96.641 Presence of right artificial hip joint; Z87.891 Personal history of nicotine dependence; J44.9 Chronic obstructive pulmonary disease, unspecified; Z86.73 Personal history of transient ischemic attack (TIA), and cerebral infarction without residual deficits; F31.9 Bipolar disorder, unspecified